=== PATIENT | female | born 2000 | race Caucasian/White ===

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

== ENCOUNTER → 2019-01-08 | Outpatient (CLI) | payer OTHER ==
--- NOTE | 2019-01-08 15:18 | US ---
EXAMINATION TYPE: US pelvic complete DATE OF EXAM: 01/08/2019 COMPARISON: US 2016 CLINICAL HISTORY: R10.2 pelvic pain. Pain during intercourse, 1, para 1 TECHNIQUE: . Transabdominal sonographic images of the pelvis were acquired. Date of LMP: 12/22/2018 EXAM MEASUREMENTS: Uterus: 7.4 x 3.8 x 4.6 cm Endometrial Stripe: 1.3 cm Right Ovary: 2.9 x 1.8 x 2.0 cm Left Ovary: 3.8 x 2.5 x 2.6 cm 1. Uterus: anteverted 2. Endometrium: wnl 3. Right Ovary: 1.7cm cystic area 4. Left Ovary: 2.1cm cystic area 5. Bilateral Adnexa: wnl 6. Posterior cul-de-sac: small amount of free fluid IMPRESSION: 1. Bilateral ovarian cysts. 2. Small amount of free fluid in the cul-de-sac
== END | disposition home or self-care (01) ==
LOC: RADUSWWP 14:47
PROVIDERS: ATTEND Obstetrics & Gynecology
DX: N83.202 Unspecified ovarian cyst, left side (principal); N83.201 Unspecified ovarian cyst, right side
CPT/HCPCS: 76856

== ENCOUNTER → 2019-04-22 | Outpatient (CLI) | payer OTHER ==
--- NOTE | 2019-04-22 15:38 | US ---
EXAMINATION TYPE: Transabdominal DATE OF EXAM: 04/22/2019 3:11 PM COMPARISON: NONE CLINICAL HISTORY: Z36 Confirm dates. Dates EXAM PERFORMED: Transabdominal (TA) EXAM MEASUREMENTS: GESTATIONAL AGE / DATING Dates by LMP: (13 weeks/0 days) EDC: 10/28/2019 Dates by Current Scan for: ( weeks/ days) EDC: MATERNAL ANATOMY Uterus: 11.8 x 8.3 x 6.2 cm Right Ovary: 2.7 x 1.5 x 1.6 cm Left Ovary: 2.6 x 1.6 x 1.3 cm Post CDS / Adnexa: no free fluid Presence of free fluid: no Presence of corpus luteal cyst: no Presence of subchorionic bleed: fundal hypoechoic lesion adjacent to GS = 3.4 x 4.8 x 1.6 cm GESTATION / SURVEY CRL: 5.9 cm (12 weeks/3 days) MSD: seen, not measured Yolk Sac (normal less than 6mm): not visualized Heart Rate: 159 bpm Rhythm: Normal IUP: Viable IUP Date of LMP: 01/21/2019, Beta HcG (if available): Not available at this time Single live intrauterine gestation is confirmed as gestational sac and pole are seen. Sac is no t clearly identified. No free fluid in pelvic cul-de-sac. There is small to moderate size isoechoic f luid collection superiorly could reflect subchorionic hemorrhage. Both ovaries are seen without susp icious extraovarian adnexal mass. IMPRESSION: Single live intrauterine gestation is confirmed, mean crown-rump length is 5.9 cm corresp onding to 12 week 3 day old fetus.
== END | disposition home or self-care (01) ==
LOC: RADUSWWP 14:48
PROVIDERS: ATTEND Obstetrics & Gynecology
DX: Z36.9 Encounter for antenatal screening, unspecified (principal)
CPT/HCPCS: 76801

== ENCOUNTER → 2019-04-30 | Outpatient (CLI) | payer OTHER ==
[2019-04-30 10:56] LABS: HCT 36.4 % (34.0-46.0); HGB 12.3 gm/dL (11.4-16.0); MCH 29.3 pg (25.0-35.0); MCHC 33.9 g/dL (31.0-37.0); MCV 86.4 fL (80.0-100.0); Mean Platelet Volume 6.3; Platelet Count 334 k/uL (150-450); RBC 4.22 m/uL (3.80-5.40); RDW 12.7 % (11.5-15.5); WBC 10.6 k/uL (4.0-11.0)
[2019-04-30 16:13] LABS: African American GFR (CKD) 153.1 (60.0-200.0)
[2019-04-30 17:45] LABS: HIV 1 AB Non-Reactive (Non-Reactive); HIV AB P24 Non-Reactive (Non-Reactive); HIV P24 AG Non-Reactive (Non-Reactive)
== END | disposition home or self-care (01) ==
LOC: LABWHC1 10:20
PROVIDERS: ATTEND Obstetrics & Gynecology
DX: Z34.81 Encounter for supervision of other normal pregnancy, first trimester (principal)
CPT/HCPCS: 36415; 82565; 82947; 85027; 86762; 86780; 86850; 86900; 86901; 87340; 87390

== ENCOUNTER 2019-07-23 13:02 | Outpatient (CLI) | payer OTHER ==
[2019-07-23 14:09] LABS: Amorphous Sediment,Urine Rare /hpf; Appearance,Urine Clear (Clear); Bilirubin,Urine Negative (Negative); Blood,Urine Negative (Negative); Color,Urine Yellow; Glucose,Urine (UA) Negative (Negative); Ketones,Urine Negative (Negative); Leukocyte Esterase,Urine Small (Negative); Mucus,Urine Occasional /hpf; Nitrite,Urine Negative (Negative); Protein,Urine Trace (Negative); Specific Gravity,Urine 1.022 (1.001-1.035); Squamous Epithelial Cell,Urine <1 /hpf (0-4); Urobilinogen,Urine <2.0 mg/dL (<2.0); WBC,Urine 4 /hpf (0-5)
[2019-07-23 14:53] VITALS: BP 120/70; PULSE 97; RESP 14; TEMP 98.3
--- NOTE | 2019-07-27 08:34 | P.MSEPDOC ---
Presenting Problems - Arrival Data Date of Arrival on Unit: 07/23/19 Time of Arrival on Unit: 13:09 Mode of Transport: Ambulatory - Complaint OB-Reason for Admission/Chief Complaint: Pain Comment: abd pain Medical History - Information : 2 Para: 1 Term: 1 : 0 Abortions: Spontaneous or Elective: 0 Number of Living Children: 1 - Gestational Age Gestational Age by DILAN (wks/days): 26 Weeks and 1 Days - History Complications: Smoker, Hx. Substance Abuse Comment: 09/16 ppd smoker. marijuana until 12 weeks Review of Systems - Review of Systems Constitutional: No problems Breast: No problems ENT: No problems Cardiovascular: No problems Respiratory: No problems Gastrointestinal: No problems Genitourinary: No problems Musculoskeletal: No problems Neurological: No problems Skin: No problems Vital Signs - Temperature Temperature: 98.3 F Temperature Source: Oral - Pulse Right Pulse Rate: 97 Pulse Assessment Method: Pulse Oximetry - Respirations Respiratory Rate: 14 O2 Sat by Pulse Oximetry: 99 - Blood Pressure Right Arm Blood Pressure: 120/70 Blood Pressure Mean: 86 Blood Pressure Source: Automatic Cuff Medical Screen Scoring (Pre) - Cervical Exam Dilation: 0 cm = 0 Membranes: Intact - Uterine Contractions Frequency: N/A Duration: N/A Intensity: N/A - Maternal Vital Signs Maternal Temperature: N/A Signs of Preeclampsia: N/A Maternal Respirations: N/A - Maternal Trauma Maternal Trauma: N/A - Assessment - Baby A Baseline FHR: 135 Heart Rate - NICHD Category: Category I (Normal) = 0 NST: Reactive - Total Score - Baby A Total Score - Baby A: 0 - Total Score - Baby B Total Score - Baby B: 0 - Total Score - Baby C Total Score - Baby C: 0 - Level of Risk - Baby A Level of Risk - Baby A: Low (0-5) - Level of Risk - Baby B Level of Risk - Baby B: Low (0-5) - Level of Risk - Baby C Level of Risk - Baby C: Low (0-5) Physician Notification (Pre) - Physician Notified Physician Notified Date: 07/23/19 Physician Notified Time: 13:30 - Notification Comment Comment: Reported on pts c/o constant lower abd pain and pressure, no. cntrx like pain, no pelvic pressure. denies bleeding or leaking, no intercourse in last. 24 hours. reported on term delivery with first baby. orders to collect and send UA,. collect ffn and check cervix. if closed, do not send ffn.Call with results. 1425- Dr Antunez called with UA results, SVE- closed thick, no bleeding or discharge. d/c home with instructions, use tylenol, support belt, other non pharm methods. keep scheduled appt on 08/03, may be off work today but none further. Disposition - Disposition OB Disposition: Discharge to home Discharge Date: 07/23/19 Discharge Time: 14:30 I agree with the RN Medical Screening Exam: Yes Risk & Benefit of care provided described in d/c instruction: Yes Diagnosis: UNSPECIFIED ABDOMINAL PAIN
== END 2019-07-23 14:30 | disposition home or self-care (01) ==
LOC: FBPOP 13:02
PROVIDERS: ATTEND Obstetrics & Gynecology
DX: O99.89 Other specified diseases and conditions complicating pregnancy, childbirth and the puerperium (principal); R10.9 Unspecified abdominal pain; Z3A.26 26 weeks gestation of pregnancy
CPT/HCPCS: 81001; G0463; 99213

== ENCOUNTER → 2019-07-28 | Outpatient (CLI) | payer OTHER ==
[2019-07-28 11:10] LABS: HCT 33.3 % (34.0-46.0); HGB 11.1 gm/dL (11.4-16.0); MCH 29.7 pg (25.0-35.0); MCHC 33.4 g/dL (31.0-37.0); Mean Platelet Volume 6.5; Platelet Count 301 k/uL (150-450); RBC 3.74 m/uL (3.80-5.40); RDW 12.4 % (11.5-15.5)
== END | disposition home or self-care (01) ==
LOC: LABWHC1 09:17
PROVIDERS: ATTEND Obstetrics & Gynecology
DX: Z34.82 Encounter for supervision of other normal pregnancy, second trimester (principal)
CPT/HCPCS: 36415; 82950; 85027

== ENCOUNTER → 2021-06-04 | Outpatient (CLI) | payer OTHER | END | disposition home or self-care (01) | LOC: LABWHC1 08:24 | PROVIDERS: ATTEND Obstetrics & Gynecology | DX: N92.6 Irregular menstruation, unspecified (principal) | CPT/HCPCS: 36415; 84702 ==

== ENCOUNTER → 2021-06-06 | Outpatient (CLI) | payer OTHER | END | disposition home or self-care (01) | LOC: LABWHC1 07:49 | PROVIDERS: ATTEND Obstetrics & Gynecology | DX: N92.6 Irregular menstruation, unspecified (principal) | CPT/HCPCS: 36415; 84702 ==

== ENCOUNTER → 2021-06-08 | Outpatient (CLI) | payer OTHER | END | disposition home or self-care (01) | LOC: LABWHC1 07:47 | PROVIDERS: ATTEND Obstetrics & Gynecology | DX: O20.0 Threatened abortion (principal); Z3A.00 Weeks of gestation of pregnancy not specified | CPT/HCPCS: 36415; 84702 ==

== ENCOUNTER → 2021-06-15 | Outpatient (CLI) | payer OTHER | END | disposition home or self-care (01) | LOC: LABWHC1 08:31 | PROVIDERS: ATTEND Obstetrics & Gynecology | DX: O20.0 Threatened abortion (principal); Z3A.00 Weeks of gestation of pregnancy not specified | CPT/HCPCS: 36415; 84702 ==

== ENCOUNTER → 2021-06-18 | Outpatient (CLI) | payer OTHER | END | disposition home or self-care (01) | LOC: LABWHC1 09:22 | PROVIDERS: ATTEND Obstetrics & Gynecology | DX: N92.6 Irregular menstruation, unspecified (principal) | CPT/HCPCS: 36415; 84702 ==

== ENCOUNTER → 2021-06-20 | Outpatient (CLI) | payer OTHER ==
[2021-06-20 11:16] LABS: HCT 39.9 % (37.2-46.3); HGB 13.1 g/dL (12.0-15.0); MCH 28.2 pg (27.0-32.0); MCHC 32.8 g/dL (32.0-37.0); MCV 85.8 fL (80.0-97.0); Mean Platelet Volume 9.8 fL (9.5-12.2); Platelet Count 420 X 10*3/uL (140-440); RBC 4.65 X 10*6/uL (4.10-5.20); RDW 12.2 % (11.5-14.5); WBC 10.16 X 10*3/uL (4.50-10.00)
[2021-06-20 18:54] LABS: ALT 16 U/L (8-44); AST 18 U/L (13-35); Albumin 4.1 g/dL (3.8-4.9); Albumin/Globulin Ratio 1.84 (1.60-3.17); Alkaline Phosphatase 71 U/L (41-126); Bilirubin, Conjugated <0.20 mg/dL (0.20-0.40); Globulin 2.2 g/dL (1.6-3.3); Total Protein 6.3 g/dL (6.2-8.2)
== END | disposition home or self-care (01) ==
LOC: LABWHC1 07:50
PROVIDERS: ATTEND Obstetrics & Gynecology
DX: O00.90 Unspecified ectopic pregnancy without intrauterine pregnancy (principal); Z3A.00 Weeks of gestation of pregnancy not specified
CPT/HCPCS: 36415; 80076; 84702; 85027

== ENCOUNTER 2021-06-21 04:27 | Day surgery (SDC) | payer OTHER ==
[2021-06-21] MEDS ORDERED: SODIUM CHLORIDE 0.9% 1,000 ML IV ONE ×3 (05:12→10:23)
[2021-06-21] MEDS ORDERED: MORPHINE SULFATE 4 MG/ML SYRINGE IV STA (05:12)
--- NOTE | 2021-06-21 05:25 | ED ---
Female Urogenital HPI <Ollie Buckner - Last Filed: 06/21/21 08:58> - General Source: patient, RN notes reviewed, old records reviewed Mode of arrival: ambulatory Limitations: no limitations - History of Present Illness MD Complaint: vaginal bleeding (Earlier in the week), pelvic pain (Starting last night) -: hour(s) Location: suprapubic Radiation: suprapubic, L flank Severity: moderate Severity scale (1-10): 7 Quality: sharp Consistency: constant Improves with: none Worsens with: none Patient : Yes Associated Symptoms: vaginal bleeding, abdominal pain, nausea/vomiting - Related Data Sexually active: No <Johnny Alberts - Last Filed: 06/21/21 21:38> - General Chief complaint: Abdominal Pain Stated complaint: Abdominal Pain Time Seen by Provider: 06/21/21 04:41 - History of Present Illness Initial comments: This is a 21-year-old female to the ER for evaluation. Patient resents today for evaluation onset of abdominal pain with known history of ectopic . Patient herself is unconvinced that she has ectopic bolus told by OB and has recurrent evaluation both today and tomorrow for evaluation of ectopic or possibility of ectopic. Patient started with abdominal pain last night into today worsening but no bleeding no feelings of syncope or near syncope, patient is a who does follow with Dr. Sanchez (Johnny Alberts) - Related Data Previous Rx's Medication Instructions Recorded Acetaminophen-Codeine 300-30mg 2 tab PO Q6H PRN #20 tablet 06/21/21 [Tylenol #3] Ibuprofen [Motrin] 600 mg PO Q6HR PRN #30 tab 06/21/21 Allergies Allergy/AdvReac Type Severity Reaction Status Date / Time blueberry Allergy Rash/Hives Verified 06/21/21 08:36 cephalexin [From Keflex] Allergy Rash/Hives Verified 06/21/21 08:36 Fish Containing Products Allergy Anaphylaxis Verified 06/21/21 08:36 [Fish] iodine Allergy Rash/Hives Verified 06/21/21 08:36 kiwi Allergy Rash/Hives Verified 06/21/21 08:36 peas Allergy Rash/Hives Verified 06/21/21 08:36 Penicillins Allergy Rash/Hives Verified 06/21/21 08:36 raspberry Allergy Rash/Hives Verified 06/21/21 08:36 shellfish derived [Shellfish] Allergy Anaphylaxis Verified 06/21/21 08:36 venom-honey bee Allergy Anaphylaxis Verified 06/21/21 08:36 [bee venom (honey bee)] amoxicillin [Amoxicillin] AdvReac Rash/Hives Verified 06/21/21 08:36 erythromycin base AdvReac Rash/Hives Verified 06/21/21 08:36 [Erythromycin Base] lavender (Lavandula AdvReac Rash/Hives Verified 06/21/21 08:36 angustifolia) Review of Systems ROS Other: All systems not noted in ROS Statement are negative. <Ollie Buckner - Last Filed: 06/21/21 08:58> ROS Other: All systems not noted in ROS Statement are negative. <Johnny Alberts - Last Filed: 06/21/21 21:38> ROS Statement: Those systems with pertinent positive or pertinent negative responses have been documented in the HPI. Past Medical History Past Medical History: Asthma Additional Past Medical History / Comment(s): Ob history: First was an SAB. Second was a vaginal delivery. This is her third and she had care with ms since 9 weeks. O+, abs neg, Rub nonimmune, RPR nonreactive, HIV NR, toxo neg. GBS negative. History of Any Multi-Drug Resistant Organisms: None Reported Past Surgical History: No Surgical Hx Reported Past Anesthesia/Blood Transfusion Reactions: No Reported Reaction Past Psychological History: Depression Smoking Status: Vaper Past Alcohol Use History: None Reported Past Drug Use History: None Reported - Past Family History Mother Family Medical History: Cancer, Congestive Heart Failure (CHF), Diabetes Mellitus, Rheumatoid Arthritis (RA) Additional Family Medical History / Comment(s): breast cancer. <Johnny Alberts - Last Filed: 06/21/21 21:38> General Exam Limitations: no limitations General appearance: alert, in no apparent distress, anxious Head exam: Present: atraumatic, normocephalic, normal inspection Eye exam: Present: normal appearance, PERRL, EOMI. Absent: scleral icterus, conjunctival injection, periorbital swelling ENT exam: Present: normal exam, mucous membranes moist Neck exam: Present: normal inspection. Absent: tenderness, meningismus, lymphadenopathy Respiratory exam: Present: normal lung sounds bilaterally. Absent: respiratory distress, wheezes, rales, rhonchi, stridor Cardiovascular Exam: Present: regular rate, normal rhythm, normal heart sounds. Absent: systolic murmur, diastolic murmur, rubs, gallop, clicks GI/Abdominal exam: Present: soft, normal bowel sounds. Absent: distended, tenderness, guarding, rebound, rigid Extremities exam: Present: normal inspection, full ROM, normal capillary refill. Absent: tenderness, pedal edema, joint swelling, calf tenderness Back exam: Present: normal inspection Neurological exam: Present: alert, oriented X3, CN II-XII intact Psychiatric exam: Present: normal affect, normal mood Skin exam: Present: warm, dry, intact, normal color. Absent: rash <Johnny Alberts - Last Filed: 06/21/21 21:38> Course <Ollie Buckner - Last Filed: 06/21/21 08:58> <Johnny Alberts - Last Filed: 06/21/21 21:38> Vital Signs 06/21/21 06/21/21 06/21/21 04:38 06:31 07:28 Temperature 98.3 F Pulse Rate 77 75 86 Pulse Rate [ Pulse Oximetery ] Respiratory 22 18 18 Rate Blood Pressure 133/93 114/74 107/62 Blood Pressure [Right Arm] O2 Sat by Pulse 97 97 100 Oximetry 06/21/21 06/21/21 06/21/21 08:19 08:20 08:39 Temperature 98.3 F 98.4 F Pulse Rate 82 82 Pulse Rate [ 91 Pulse Oximetery ] Respiratory 18 18 16 Rate Blood Pressure 107/64 107/64 Blood Pressure 107/59 [Right Arm] O2 Sat by Pulse 100 100 99 Oximetry - Reevaluation(s) Reevaluation #1: 06/21/21 07:54 The patient was endorsed me by Dr. Alberts at her shift change pending evaluation by K[employer] MACH[employer] Dr. Saunders they come see the patient in the emergency department pending evaluation by Dr. Sanchez. 06/21/21 07:59 Pelvic ultrasound showed evidence of a mass 2 cm in the left adnexa possibility of ectopic . (Ollie Buckner) 06/21/21 06:35 Medical record is reviewed Patient does have pain control currently No current worsening of vital signs Did speak with OB who will be seeing patient in the emergency department (Johnny Alberts) Medical Decision Making - Lab Data Result diagrams: 06/21/21 05:59 06/21/21 05:59 <Ollie Buckner - Last Filed: 06/21/21 08:58> - Lab Data Result diagrams: 06/21/21 05:59 06/21/21 05:59 - Radiology Data Radiology results: report reviewed (Ultrasound shows recurrent suspicion for ectopic , no IUP), image reviewed <Johnny Alberts - Last Filed: 06/21/21 21:38> - Medical Decision Making The patient was taken to the operating room for evaluation treatment of the suspected ectopic . (Ollie Buckner) - Lab Data Lab Results 06/21/21 06/21/21 06/21/21 Range/Units 05:59 05:59 05:59 WBC 9.3 (3.8-10.6) k/uL RBC 4.47 (3.80-5.40) m/uL Hgb 13.2 (11.4-16.0) gm/dL Hct 39.2 (34.0-46.0) % MCV 87.8 (80.0-100.0) fL MCH 29.5 (25.0-35.0) pg MCHC 33.6 (31.0-37.0) g/dL RDW 11.9 (11.5-15.5) % Plt Count 363 (150-450) k/uL MPV 6.9 Neutrophils % 58 % Lymphocytes % 28 % Monocytes % 7 % Eosinophils % 5 % Basophils % 1 % Neutrophils # 5.4 (1.3-7.7) k/uL Lymphocytes # 2.6 (1.0-4.8) k/uL Monocytes # 0.6 (0-1.0) k/uL Eosinophils # 0.5 (0-0.7) k/uL Basophils # 0.1 (0-0.2) k/uL PT 10.5 (9.0-12.0) sec INR 1.0 (<1.2) APTT 23.6 (22.0-30.0) sec Sodium (137-145) mmol/L Potassium (3.5-5.1) mmol/L Chloride (98-107) mmol/L Carbon Dioxide (22-30) mmol/L Anion Gap mmol/L BUN (7-17) mg/dL Creatinine (0.52-1.04) mg/dL Est GFR (CKD-EPI)AfAm (>60 ml/min/1.73 sqM) Est GFR (CKD-EPI)NonAf (>60 ml/min/1.73 sqM) Glucose (74-99) mg/dL Calcium (8.4-10.2) mg/dL Total Bilirubin (0.2-1.3) mg/dL AST (14-36) U/L ALT (4-34) U/L Alkaline Phosphatase (38-126) U/L Total Protein (6.3-8.2) g/dL Albumin (3.5-5.0) g/dL HCG, Quant mIU/mL Urine Color Yellow Urine Appearance Clear (Clear) Urine pH 6.0 (5.0-8.0) Ur Specific [place] 1.025 (1.001-1.035) Urine Protein Negative (Negative) Urine Glucose (UA) Negative (Negative) Urine Ketones Negative (Negative) Urine Blood Negative (Negative) Urine Nitrite Negative (Negative) Urine Bilirubin Negative (Negative) Urine Urobilinogen <2.0 (<2.0) mg/dL Ur Leukocyte Esterase Negative (Negative) Blood Type Blood Type Recheck Bld Type Recheck Status Antibody Screen Spec Expiration Date 06/21/21 06/21/21 Range/Units 05:59 06:00 WBC (3.8-10.6) k/uL RBC (3.80-5.40) m/uL Hgb (11.4-16.0) gm/dL Hct (34.0-46.0) % MCV (80.0-100.0) fL MCH (25.0-35.0) pg MCHC (31.0-37.0) g/dL RDW (11.5-15.5) % Plt Count (150-450) k/uL MPV Neutrophils % % Lymphocytes % % Monocytes % % Eosinophils % % Basophils % % Neutrophils # (1.3-7.7) k/uL Lymphocytes # (1.0-4.8) k/uL Monocytes # (0-1.0) k/uL Eosinophils # (0-0.7) k/uL Basophils # (0-0.2) k/uL PT (9.0-12.0) sec INR (<1.2) APTT (22.0-30.0) sec Sodium 135 L (137-145) mmol/L Potassium 4.4 (3.5-5.1) mmol/L Chloride 104 (98-107) mmol/L Carbon Dioxide 24 (22-30) mmol/L Anion Gap 7 mmol/L BUN 10 (7-17) mg/dL Creatinine 0.59 (0.52-1.04) mg/dL Est GFR (CKD-EPI)AfAm >90 (>60 ml/min/1.73 sqM) Est GFR (CKD-EPI)NonAf >90 (>60 ml/min/1.73 sqM) Glucose 95 (74-99) mg/dL Calcium 9.5 (8.4-10.2) mg/dL Total Bilirubin 0.5 (0.2-1.3) mg/dL AST 20 (14-36) U/L ALT 15 (4-34) U/L Alkaline Phosphatase 63 (38-126) U/L Total Protein 6.4 (6.3-8.2) g/dL Albumin 3.8 (3.5-5.0) g/dL HCG, Quant 5734.4 mIU/mL Urine Color Urine Appearance (Clear) Urine pH (5.0-8.0) Ur Specific [place] (1.001-1.035) Urine Protein (Negative) Urine Glucose (UA) (Negative) Urine Ketones (Negative) Urine Blood (Negative) Urine Nitrite (Negative) Urine Bilirubin (Negative) Urine Urobilinogen (<2.0) mg/dL Ur Leukocyte Esterase (Negative) Blood Type O Positive Blood Type Recheck O Pos Bld Type Recheck Status No Antibody Screen NEGATIVE Spec Expiration Date 06/24/20212299 Critical Care Time Critical Care Time: Yes Total Critical Care Time: 31 <Johnny Alberts - Last Filed: 06/21/21 21:38> Disposition <Ollie Buckner - Last Filed: 06/21/21 08:58> Is patient prescribed a controlled substance at d/c from ED?: No <Johnny Alberts - Last Filed: 06/21/21 21:38> Clinical Impression: Ectopic , Intractable pain Disposition: HOME SELF-CARE Condition: Serious
[2021-06-21 06:27] LABS: Basophils # (A) 0.1 k/uL (0-0.2); Basophils % (A) 1 %; Eosinophils # (A) 0.5 k/uL (0-0.7); Eosinophils % (A) 5 %; HCT 39.2 % (34.0-46.0); HGB 13.2 gm/dL (11.4-16.0); Lymphocytes # (A) 2.6 k/uL (1.0-4.8); Lymphocytes % (A) 28 %; MCH 29.5 pg (25.0-35.0); MCHC 33.6 g/dL (31.0-37.0); MCV 87.8 fL (80.0-100.0); Mean Platelet Volume 6.9; Monocytes # (A) 0.6 k/uL (0-1.0); Monocytes % (A) 7 %; Neutrophils # (A) 5.4 k/uL (1.3-7.7); Neutrophils % (A) 58 %; Platelet Count 363 k/uL (150-450); RBC 4.47 m/uL (3.80-5.40); RDW 11.9 % (11.5-15.5); WBC 9.3 k/uL (3.8-10.6)
--- NOTE | 2021-06-21 06:36 | US ---
EXAMINATION TYPE: Transabdominal DATE OF EXAM: 06/21/2021 6:21 AM COMPARISON: NONE CLINICAL HISTORY: pain/ectopic. Patient states she was diagnosed with a left sided ectopic last week EXAM PERFORMED: Transvaginal (TV) and Transabdominal (TA) EXAM MEASUREMENTS: GESTATIONAL AGE / DATING Physician Established: Not yet established Dates by LMP: ( 7 weeks/3 days) EDC: 02/04/2022 Dates by Current Scan for: No IUP seen at this time MATERNAL ANATOMY Uterus: 8.0 x 4.3 x 4.3 cm Right Ovary: 1.5 x 0.8 x 0.9 cm Post CDS / Adnexa: Moderate amount of complex free fluid visualized. Witnin the left adnexa, adjacent to the left ovary, there is a complex area measuring 2.1 x 1.9 x 2.3 cm suspicious for ectopic pregn natty. Presence of free fluid: Yes GESTATION / SURVEY IUP: No IUP seen at this time Date of LMP: 04/30/2021 Beta HcG (if available): 4833.1 on 06/20/2021 No IUP visualized. Witnin the left adnexa, adjacent to the left ovary, there is a complex area measur ing 2.1 x 1.9 x 2.3 cm suspicious for ectopic . Moderate amount of complex free fluid visual ized in cul de sac. IMPRESSION: No intrauterine gestational sac seen. Thick walled mass measuring 2 cm in the left adnexa could be ea rly ectopic . This has central fluid collection 7 mm. No yolk sac or pole seen. No rec ent exam to compare.
[2021-06-21 06:42] LABS: ALT 15 U/L (4-34); AST 20 U/L (14-36); African American GFR (CKD) >90 (>60 ml/min/1.73 sqM); Albumin 3.8 g/dL (3.5-5.0); Alkaline Phosphatase 63 U/L (38-126); Anion Gap 7 mmol/L; Blood Urea Nitrogen 10 mg/dL (7-17); Calcium 9.5 mg/dL (8.4-10.2); Carbon Dioxide 24 mmol/L (22-30); Chloride 104 mmol/L (98-107); Glucose 95 mg/dL (74-99); Non-African American GFR(CKD) >90 (>60 ml/min/1.73 sqM); Potassium 4.4 mmol/L (3.5-5.1); Sodium 135 mmol/L (137-145); Total Bilirubin 0.5 mg/dL (0.2-1.3); Total Protein 6.4 g/dL (6.3-8.2)
[2021-06-21 06:57] LABS: HCG,Quantitative Serum 5734.4 mIU/mL
[2021-06-21 07:05] LABS: Partial Thromboplastin Time 23.6 sec (22.0-30.0); Prothrombin Time 10.5 sec (9.0-12.0)
[2021-06-21 07:12] LABS: Appearance,Urine Clear (Clear); Bilirubin,Urine Negative (Negative); Blood,Urine Negative (Negative); Color,Urine Yellow; Glucose,Urine (UA) Negative (Negative); Ketones,Urine Negative (Negative); Leukocyte Esterase,Urine Negative (Negative); Nitrite,Urine Negative (Negative); Protein,Urine Negative (Negative); Specific Gravity,Urine 1.025 (1.001-1.035); Urobilinogen,Urine <2.0 mg/dL (<2.0)
--- NOTE | 2021-06-21 08:22 | P.HPOB ---
History of Present Illness H&P Date: 06/21/21 Chief Complaint: left ectopic 29-year-old presents with a diagnosed left ectopic . I spoke to her yesterday her about getting methotrexate and she was not ready for this so I scheduled another ultrasound for later today. She was told to come to the emergency room of her pain increased. This morning her pain did increase and mostly on the left side but also within the mid pelvis. Her hemoglobin is stable. There is her decision making the decision was made to take her to the operating room and perform a left salpingectomy with removal of ectopic Review of Systems All systems: negative Constitutional: Denies chills, Denies fever Eyes: denies blurred vision, denies pain Ears, nose, mouth and throat: Denies headache, Denies sore throat Cardiovascular: Denies chest pain, Denies shortness of breath Respiratory: Denies cough Gastrointestinal: Denies abdominal pain, Denies diarrhea, Denies nausea, Denies vomiting Genitourinary: Denies dysuria, Denies hematuria Musculoskeletal: Denies myalgias Integumentary: Denies pruritus, Denies rash Neurological: Denies numbness, Denies weakness Psychiatric: Denies anxiety, Denies depression Endocrine: Denies fatigue, Denies weight change Past Medical History Past Medical History: Asthma History of Any Multi-Drug Resistant Organisms: None Reported Past Surgical History: No Surgical Hx Reported Past Anesthesia/Blood Transfusion Reactions: No Reported Reaction Past Psychological History: Depression Smoking Status: Vaper Past Alcohol Use History: None Reported Past Drug Use History: None Reported - Past Family History Mother Family Medical History: Cancer, Congestive Heart Failure (CHF), Diabetes Mellitus, Rheumatoid Arthritis (RA) Additional Family Medical History / Comment(s): breast cancer. Medications and Allergies Home Medications Medication Instructions Recorded Confirmed Type Multivitamin [Children's 2 tab PO DAILY 17 10/21/19 History Multivitamins] Ibuprofen [Motrin] 600 mg PO Q6HR PRN #30 tab 10/22/19 Rx Allergies Allergy/AdvReac Type Severity Reaction Status Date / Time blueberry Allergy Rash/Hives Verified 06/21/21 04:42 cephalexin [From Keflex] Allergy Rash/Hives Verified 06/21/21 04:42 Fish Containing Products Allergy Anaphylaxis Verified 06/21/21 04:42 [Fish] iodine Allergy Rash/Hives Verified 06/21/21 04:42 kiwi Allergy Rash/Hives Verified 06/21/21 04:42 peas Allergy Rash/Hives Verified 06/21/21 04:42 Penicillins Allergy Rash/Hives Verified 06/21/21 04:42 raspberry Allergy Rash/Hives Verified 06/21/21 04:42 shellfish derived [Shellfish] Allergy Anaphylaxis Verified 06/21/21 04:42 venom-honey bee Allergy Anaphylaxis Verified 06/21/21 04:42 [bee venom (honey bee)] amoxicillin [Amoxicillin] AdvReac Rash/Hives Verified 06/21/21 04:42 erythromycin base AdvReac Rash/Hives Verified 06/21/21 04:42 [Erythromycin Base] lavender (Lavandula AdvReac Rash/Hives Verified 06/21/21 04:42 angustifolia) Exam Osteopathic Statement: *. No significant issues noted on an osteopathic structural exam other than those noted in the History and Physical/Consult. Vital Signs Temp Pulse Resp BP Pulse Ox 06/21/21 07:28 86 18 107/62 100 06/21/21 06:31 75 18 114/74 97 06/21/21 04:38 98.3 F 77 22 133/93 97 Intake and Output 06/20/21 06/21/21 06/21/21 22:59 06:59 14:59 Other: Weight 81.193 kg Heart: Regular rate and rhythm Lungs: Clear to auscultation bilaterally Abdomen: Soft, tender to palpation in the low pelvis Extremities: Negative Homans sign Results Result Diagrams: 06/21/21 05:59 06/21/21 05:59 Abnormal Lab Results - Last 24 Hours (Table) 06/21/21 Range/Units 05:59 Sodium 135 L (137-145) mmol/L Assessment and Plan (1) Ectopic Current Visit: Yes Status: Acute Code(s): O00.90 - UNSPECIFIED ECTOPIC WITHOUT INTRAUTERINE SNOMED Code(s): 36689333 (2) Intractable pain Current Visit: Yes Status: Acute Code(s): R52 - PAIN, UNSPECIFIED SNOMED Code(s): 24115984 Plan: 1. Laparoscopic left salpingectomy with removal of ectopic using da Pippa
[2021-06-21] MEDS ORDERED: ONDANSETRON 4 MG/2 ML VIAL ONE ×2 (08:37→13:22)
[2021-06-21] MEDS ORDERED: MIDAZOLAM 2 MG/2 ML VIAL IVP ONE (08:47)
[2021-06-21] MEDS ORDERED: ONDANSETRON 4 MG/2 ML VIAL IVP ONE ×3 (08:47→13:25)
[2021-06-21] MEDS ORDERED: DEXAMETHASONE SOD PHOSPHATE 4 MG/ML 1 ML VIAL IVP ONE (08:47)
[2021-06-21] MEDS ORDERED: IV FLUID CONTINUATION 1,000 ML IV ONE (08:47)
[2021-06-21] MEDS ORDERED: MIDAZOLAM 2 MG/2 ML VIAL ONE (08:48)
[2021-06-21] MEDS ORDERED: PHENYLEPHRINE-0.9% NACL SYG 1,000 MCG/10 ML SYRINGE ONE (08:48)
[2021-06-21] MEDS ORDERED: KETOROLAC 15 MG/ML 1 ML VIAL ONE (08:48)
[2021-06-21] MEDS ORDERED: SUCCINYLCHOLINE CHLORIDE 100 MG/5 ML SYR IV ONE (08:48)
[2021-06-21] MEDS ORDERED: fentaNYL (PF) 50 MCG/ML 2 ML AMP ONE (08:48)
[2021-06-21] MEDS ORDERED: ROCURONIUM 10 MG/ML (5 ML VIAL) IV ONE (08:48)
[2021-06-21] MEDS ORDERED: LIDOCAINE 1% INJ 10MG/ML (20 ML MDV) ONE (08:48)
[2021-06-21] MEDS ORDERED: HYDROmorphone (PF) 1 MG/ML ONE (08:48)
[2021-06-21] MEDS ORDERED: GLYCOPYRROLATE 0.2 MG/ML 2 ML VIAL ONE (08:48)
[2021-06-21] MEDS ORDERED: PROPOFOL 10 MG/ML 20 ML VIAL IV ONE (08:48)
[2021-06-21] MEDS ORDERED: NEOSTIGMINE 1 MG/ML 10 ML VIAL ONE (08:48)
[2021-06-21] MEDS ORDERED: BUPIVACAINE (PF) 0.25% 30 ML VIAL SQ ONE (09:25)
[2021-06-21] MEDS ORDERED: METHYLENE BLUE 10 MG/ML (10 ML VIAL) MISCELLANE ONE (09:49)
--- NOTE | 2021-06-21 09:56 | P.OP ---
Date of Procedure: 06/21/21 Preoperative Diagnosis: 1. ectopic Postoperative Diagnosis: 1. ruptured left ovarian ectopic Procedure(s) Performed: Robotic laparoscopy with removal of ectopic from the ovary, placement of's no and chromotubation Anesthesia: CONNER Surgeon: Trang Sancehz Estimated Blood Loss (ml): 15 IV fluids (ml): 500 Urine output (ml): 55 Pathology: other (ectopic and part of left ovary) Condition: stable Disposition: PACU Operative Findings: Blood noted in the cul-de-sac and lower pelvis, blood clot surrounding ectopic attached to left ovary. Methylene blue was seen spilling out of both fallopian tubes at fimbriated end during chromotubation. Description of Procedure: Patient taken the operating room where general anesthesia was obtained without difficulty. She is prepped and draped in normal sterile fashion dorsal lithotomy position, legs placed in the Guillermo stirrups. Weighted speculum placed in the vagina and the anterior lip the cervix was grasped with single-tooth tenaculum. The uterus sounded to 8 cm and the kroner manipulator was placed. The bladder was drained of all urine. Attention was then turned to the abdomen and gloves were changed. A 5 mm supraumbilical incision was made the scalpel and a 5 mm optical trocar was placed under direct visualization. 10 cm to the right of this and 2 cm down a 5 mm incision was made and 8 mm da Pippa port was placed under direct visualization. Same measurements on the opposite side of the patient's abdomen, the 5 mm incision was made and 8 mm da Pippa port was placed under direct visualization. In the left upper quadrant a 10 mm incision was made and a 10 mm optical trocar was placed under direct visualization. The 5 mm optical trocar was then replaced with the 8 mm da Pippa camera port. The robot was docked on patient's right side. The camera was introduced and then the monopolar curved scissor and [place] bipolar placed under direct visualization. I broke scrub and went to the physician console. Survey of the pelvis revealed blood near the uterus and in the posterior cul-de-sac. The right fallopian tube and ovary appeared normal. The left fallopian tube appeared normal. The left ovary had a blood clot attached to it and when the blood clot was removed the ectopic was revealed. I used the [place] bipolar to cauterize across the ectopic between the ovary and the ectopic and cut this away using the monopolar curved scissors. There was some bleeding noted and attempts were made to stop the bleeding using the cautery. There was still some oozing so surgical so was placed to obtain hemostasis. In order to ensure did not miss anything in the left fallopian tube chromotubation was performed with methylene blue. I did see spillage of the methylene blue out of both fimbriated ends of the fallopian tubes. All instruments removed from the vagina and the abdomen. The abdominal incisions were closed with 4-0 Vicryl in a subcuticular fashion. Patient tolerated the procedure well, sponge and instrument counts correct 2 and she was taken to recovery room in stable condition condition
[2021-06-21 10:13] VITALS: TEMP 97.3
[2021-06-21] MEDS: HYDROmorphone 0.5 MG/0.5 ML SYRINGE IVP ONE ×2 (10:52→11:01)
[2021-06-21 12:05] VITALS: RESP 20
[2021-06-21] MEDS ORDERED: IBUPROFEN 200 MG TAB PO ONE (12:25)
[2021-06-21 12:43] VITALS: BP 107/76; PULSE 77
== END 2021-06-21 14:07 | disposition home or self-care (01) ==
LOC: EC 04:27 → OR 04:27 → EC 08:25 → EDSTATUS 11:26 → OR 14:07
PROVIDERS: ATTEND Emergency Medicine
DX: O00.90 Unspecified ectopic pregnancy without intrauterine pregnancy (principal); Z3A.00 Weeks of gestation of pregnancy not specified; J45.909 Unspecified asthma, uncomplicated; F32.9 Major depressive disorder, single episode, unspecified; F17.290 Nicotine dependence, other tobacco product, uncomplicated; Z83.3 Family history of diabetes mellitus; Z82.61 Family history of arthritis; Z82.49 Family history of ischemic heart disease and other diseases of the circulatory system; Z80.3 Family history of malignant neoplasm of breast; Z88.1 Allergy status to other antibiotic agents; Z88.0 Allergy status to penicillin; Z91.013 Allergy to seafood; Z91.018 Allergy to other foods; Z91.048 Other nonmedicinal substance allergy status
CPT/HCPCS: 59150; 96361; 96374; 99291; 36415; 86900; 86901; 88305; 80053; 85025; 85610; 85730; 86850; 81003; 84702; 76801; 76817; J2250; J2270; J1100; J2710; J2405; J2001; Q9968; J3010; J1170 ×2; J1885; J2370; J0330; J2704

== ENCOUNTER 2021-06-22 04:40 | Emergency (ER) | payer OTHER ==
[2021-06-22] MEDS ORDERED: SODIUM CHLORIDE 0.9% 1,000 ML IV STA (04:55)
[2021-06-22] MEDS ORDERED: MORPHINE SULFATE 4 MG/ML SYRINGE IVP STA (04:55)
[2021-06-22] MEDS ORDERED: LORazepam 2 MG/ML INJ IV STA (04:55)
[2021-06-22] MEDS ORDERED: ONDANSETRON 4 MG/2 ML VIAL IVP STA (04:55)
--- NOTE | 2021-06-22 04:57 | ED ---
Recheck HPI - General Chief Complaint: Chest Pain Stated Complaint: Post-op JEN Time Seen by Provider: 06/22/21 04:55 Source: patient, RN notes reviewed, old records reviewed Mode of arrival: ambulatory Limitations: no limitations - History of Present Illness Initial Comments: This is a 21-year-old female to the emergency room today. Patient Dese for e valuation regards to severe abdominal pain epigastric abdominal pain nausea vomiting and chest pain. Patient had recent surgery for ectopic yesterday and symptoms are improved she will home softball and pain began last night into this morning. Patient is without fever. She is passing gas without difficulty and has no other complaints MD Complaint: other (Pain control) -: hour(s) Returns Today for: persistent/worsening pain related to initial visit Symptoms Since Prior Visit: no new symptoms, worsening pain Associated Symptoms: chest pain, nausea, abdominal pain Treatments Prior to Arrival: Given Pain Meds on - Related Data Previous Rx's Medication Instructions Recorded Acetaminophen-Codeine 300-30mg 2 tab PO Q6H PRN #20 tablet 06/21/21 [Tylenol #3] Ibuprofen [Motrin] 600 mg PO Q6HR PRN #30 tab 06/21/21 Allergies Allergy/AdvReac Type Severity Reaction Status Date / Time blueberry Allergy Rash/Hives Verified 06/22/21 04:47 cephalexin [From Keflex] Allergy Rash/Hives Verified 06/22/21 04:47 Fish Containing Products Allergy Anaphylaxis Verified 06/22/21 04:47 [Fish] iodine Allergy Rash/Hives Verified 06/22/21 04:47 kiwi Allergy Rash/Hives Verified 06/22/21 04:47 peas Allergy Rash/Hives Verified 06/22/21 04:47 Penicillins Allergy Rash/Hives Verified 06/22/21 04:47 raspberry Allergy Rash/Hives Verified 06/22/21 04:47 shellfish derived [Shellfish] Allergy Anaphylaxis Verified 06/22/21 04:47 venom-honey bee Allergy Anaphylaxis Verified 06/22/21 04:47 [bee venom (honey bee)] amoxicillin [Amoxicillin] AdvReac Rash/Hives Verified 06/22/21 04:47 erythromycin base AdvReac Rash/Hives Verified 06/22/21 04:47 [Erythromycin Base] lavender (Lavandula AdvReac Rash/Hives Verified 06/22/21 04:47 angustifolia) Review of Systems ROS Statement: Those systems with pertinent positive or pertinent negative responses have been documented in the HPI. ROS Other: All systems not noted in ROS Statement are negative. Past Medical History Past Medical History: Asthma Additional Past Medical History / Comment(s): Ob history: First was an SAB. Second was a vaginal delivery. This is her third and she had care with me since 9 weeks. O+, abs neg, Rub nonimmune, RPR nonreactive, HIV NR, toxo neg. GBS negative. History of Any Multi-Drug Resistant Organisms: None Reported Past Surgical History: No Surgical Hx Reported Past Anesthesia/Blood Transfusion Reactions: No Reported Reaction Past Psychological History: Depression Smoking Status: Vaper Past Alcohol Use History: None Reported Past Drug Use History: None Reported - Past Family History Mother Family Medical History: Cancer, Congestive Heart Failure (CHF), Diabetes Mellitus, Rheumatoid Arthritis (RA) Additional Family Medical History / Comment(s): breast cancer. General Exam Limitations: no limitations General appearance: alert, in no apparent distress Head exam: Present: atraumatic, normocephalic, normal inspection Eye exam: Present: normal appearance, PERRL, EOMI. Absent: scleral icterus, conjunctival injection, periorbital swelling ENT exam: Present: normal exam, mucous membranes moist Neck exam: Present: normal inspection. Absent: tenderness, meningismus, lymphadenopathy Respiratory exam: Present: normal lung sounds bilaterally. Absent: respiratory distress, wheezes, rales, rhonchi, stridor Cardiovascular Exam: Present: regular rate, normal rhythm, normal heart sounds. Absent: systolic murmur, diastolic murmur, rubs, gallop, clicks GI/Abdominal exam: Present: soft, normal bowel sounds. Absent: distended, tenderness, guarding, rebound, rigid Extremities exam: Present: normal inspection, full ROM, normal capillary refill. Absent: tenderness, pedal edema, joint swelling, calf tenderness Back exam: Present: normal inspection Neurological exam: Present: alert, oriented X3, CN II-XII intact Psychiatric exam: Present: normal affect, normal mood Skin exam: Present: warm, dry, intact, normal color. 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 ] Respiratory 22 18 Rate Blood Pressure 121/82 100/62 O2 Sat by Pulse 97 97 Oximetry - Reevaluation(s) Reevaluation #1: Medical record is reviewed Patient symptoms are significantly improved Patient informed of results and questions answered Patient is in no acute distress Reevaluation #2: 06/22/21 06:50 Patient has adequate pain control with no significant findings Reevaluation #3: 06/22/21 06:50 Patient is informed of results and questions answered - Consultations Consultation #1: Spoke with Radiologist regarding computed tomography scan findings, no concern for acute process Medical Decision Making - Medical Decision Making 21 female to the emergency department for evaluation patient presents today for evaluation regards to epigastric abdominal pain. CT scans and labwork are normal here in the ER patient can be discharged home - Lab Data Result diagrams: 06/22/21 05:21 06/22/21 05:21 Lab Results 06/22/21 06/22/21 06/22/21 Range/Units 05:21 05:21 05:21 WBC 10.6 (3.8-10.6) k/uL RBC 4.81 (3.80-5.40) m/uL Hgb 14.3 (11.4-16.0) gm/dL Hct 42.1 (34.0-46.0) % MCV 87.7 (80.0-100.0) fL MCH 29.8 (25.0-35.0) pg MCHC 34.0 (31.0-37.0) g/dL RDW 11.9 (11.5-15.5) % Plt Count 302 (150-450) k/uL MPV 6.7 Neutrophils % 74 % Lymphocytes % 19 % Monocytes % 6 % Eosinophils % 1 % Basophils % 0 % Neutrophils # 7.8 H (1.3-7.7) k/uL Lymphocytes # 2.0 (1.0-4.8) k/uL Monocytes # 0.6 (0-1.0) k/uL Eosinophils # 0.1 (0-0.7) k/uL Basophils # 0.0 (0-0.2) k/uL PT 10.2 (9.0-12.0) sec INR 0.9 (<1.2) APTT 21.9 L (22.0-30.0) sec D-Dimer 0.57 (<0.60) mg/L FEU Sodium 137 (137-145) mmol/L Potassium 3.7 (3.5-5.1) mmol/L Chloride 107 (98-107) mmol/L Carbon Dioxide 21 L (22-30) mmol/L Anion Gap 9 mmol/L BUN 6 L (7-17) mg/dL Creatinine 0.58 (0.52-1.04) mg/dL Est GFR (CKD-EPI)AfAm >90 (>60 ml/min/1.73 sqM) Est GFR (CKD-EPI)NonAf >90 (>60 ml/min/1.73 sqM) Glucose 129 H (74-99) mg/dL Calcium 9.3 (8.4-10.2) mg/dL Magnesium 1.8 (1.6-2.3) mg/dL Total Bilirubin 0.4 (0.2-1.3) mg/dL AST 26 (14-36) U/L ALT 16 (4-34) U/L Alkaline Phosphatase 63 (38-126) U/L Troponin I (0.000-0.034) ng/mL NT-Pro-B Natriuret Pep pg/mL Total Protein 6.4 (6.3-8.2) g/dL Albumin 3.6 (3.5-5.0) g/dL Lipase 38 (23-300) U/L 06/22/21 06/22/21 Range/Units 05:21 05:21 WBC (3.8-10.6) k/uL RBC (3.80-5.40) m/uL Hgb (11.4-16.0) gm/dL Hct (34.0-46.0) % MCV (80.0-100.0) fL MCH (25.0-35.0) pg MCHC (31.0-37.0) g/dL RDW (11.5-15.5) % Plt Count (150-450) k/uL MPV Neutrophils % % Lymphocytes % % Monocytes % % Eosinophils % % Basophils % % Neutrophils # (1.3-7.7) k/uL Lymphocytes # (1.0-4.8) k/uL Monocytes # (0-1.0) k/uL Eosinophils # (0-0.7) k/uL Basophils # (0-0.2) k/uL PT (9.0-12.0) sec INR (<1.2) APTT (22.0-30.0) sec D-Dimer (<0.60) mg/L FEU Sodium (137-145) mmol/L Potassium (3.5-5.1) mmol/L Chloride (98-107) mmol/L Carbon Dioxide (22-30) mmol/L Anion Gap mmol/L BUN (7-17) mg/dL Creatinine (0.52-1.04) mg/dL Est GFR (CKD-EPI)AfAm (>60 ml/min/1.73 sqM) Est GFR (CKD-EPI)NonAf (>60 ml/min/1.73 sqM) Glucose (74-99) mg/dL Calcium (8.4-10.2) mg/dL Magnesium (1.6-2.3) mg/dL Total Bilirubin (0.2-1.3) mg/dL AST (14-36) U/L ALT (4-34) U/L Alkaline Phosphatase (38-126) U/L Troponin I <0.012 (0.000-0.034) ng/mL NT-Pro-B Natriuret Pep 358 pg/mL Total Protein (6.3-8.2) g/dL Albumin (3.5-5.0) g/dL Lipase (23-300) U/L - EKG Data -: EKG Interpreted by Me (EKG shows sinus rhythm 97 CT 174 QRS 100 QTc 439) - Radiology Data Radiology results: report reviewed (CTA chest CT abdomen and pelvis shows no significant acute disease), image reviewed Disposition Clinical Impression: Intractable pain, Chest pain, Abdominal pain, Postoperative pain Disposition: HOME SELF-CARE Condition: Good Instructions (If sedation given, give patient instructions): Abdominal Pain (ED) Is patient prescribed a controlled substance at d/c from ED?: No Referrals: Mich Ho MD [Primary Care Provider] - 1-2 days
[2021-06-22 05:32] LABS: Basophils % (A) 0 %; Eosinophils # (A) 0.1 k/uL (0-0.7); Eosinophils % (A) 1 %; HCT 42.1 % (34.0-46.0); HGB 14.3 gm/dL (11.4-16.0); Lymphocytes % (A) 19 %; MCH 29.8 pg (25.0-35.0); MCV 87.7 fL (80.0-100.0); Mean Platelet Volume 6.7; Monocytes # (A) 0.6 k/uL (0-1.0); Monocytes % (A) 6 %; Neutrophils # (A) 7.8 k/uL (1.3-7.7); Neutrophils % (A) 74 %; Platelet Count 302 k/uL (150-450); RBC 4.81 m/uL (3.80-5.40); RDW 11.9 % (11.5-15.5); WBC 10.6 k/uL (3.8-10.6)
[2021-06-22] MEDS ORDERED: FAMOTIDINE 20 MG/2 ML VIAL IV STA (05:36)
[2021-06-22] MEDS ORDERED: diphenhydrAMINE 50 MG/ML 1 ML VIAL IVP STA (05:36)
[2021-06-22] MEDS ORDERED: methylPREDNISolone SOD SUCCI 125 MG/2 ML VIAL IV STA (05:36)
[2021-06-22 05:44] LABS: ALT 16 U/L (4-34); AST 26 U/L (14-36); African American GFR (CKD) >90 (>60 ml/min/1.73 sqM); Albumin 3.6 g/dL (3.5-5.0); Alkaline Phosphatase 63 U/L (38-126); Anion Gap 9 mmol/L; Blood Urea Nitrogen 6 mg/dL (7-17); Calcium 9.3 mg/dL (8.4-10.2); Carbon Dioxide 21 mmol/L (22-30); Chloride 107 mmol/L (98-107); Glucose 129 mg/dL (74-99); Magnesium 1.8 mg/dL (1.6-2.3); Non-African American GFR(CKD) >90 (>60 ml/min/1.73 sqM); Potassium 3.7 mmol/L (3.5-5.1); Sodium 137 mmol/L (137-145); Total Bilirubin 0.4 mg/dL (0.2-1.3); Total Protein 6.4 g/dL (6.3-8.2)
[2021-06-22 06:00] LABS: Lipase 38 U/L (23-300)
[2021-06-22 06:03] LABS: INR 0.9 (<1.2)
[2021-06-22 06:04] LABS: Partial Thromboplastin Time 21.9 sec (22.0-30.0); Prothrombin Time 10.2 sec (9.0-12.0)
--- NOTE | 2021-06-22 06:34 | CT ---
EXAMINATION TYPE: CT angio chest DATE OF EXAM: 06/22/2021 COMPARISON: None HISTORY: pain CT DLP: 730.1 mGycm Automated exposure control for dose reduction was used. CONTRAST: Performed with IV Contrast, patient injected with 100 mL of Isovue 370. There are 3-D post processed images. There is some mild groundglass interstitial infiltrates in the posterior lung aguilar. There is mild p atchy atelectasis in the posterior lung aguilar. Heart size is fairly normal. There is no pericardial effusion. There is some pleural thickening and no evidence of pleural fluid. There are no hilar masses. There is no mediastinal adenopathy. There is normal contrast opacification of the pulmonary arteries. There are no filling defects. The bony thorax appears intact. Thoracic ao rta is intact. There is no aneurysm or dissection. IMPRESSION: No evidence of pulmonary embolism. Interstitial infiltrates and atelectasis in the posterior lung fie lds bilaterally. No suspicious pulmonary mass.
[2021-06-22 06:39] VITALS: RESP 18
--- NOTE | 2021-06-22 06:39 | CT ---
EXAMINATION TYPE: CT abdomen pelvis w con DATE OF EXAM: 06/22/2021 COMPARISON: 08/26/2011 HISTORY: pain CT DLP: 1121 mGycm Automated exposure control for dose reduction was used. CONTRAST: Performed with IV Contrast, patient injected with 100 mL of Isovue 370. There is interstitial infiltrate and atelectasis at the lung bases. There is mild pleural thickening at the lung bases. Liver spleen stomach pancreas gallbladder appear intact. Bile ducts are nondilated. There is no adrenal mass. There is small pneumoperitoneum. Kidneys show satisfactory contrast opacifi cation. There is no hydronephrosis. There is no retroperitoneal adenopathy. There is mild free fluid in the pelvis. Bladder distends smoothly. There is no mesenteric edema. There is no free air. There is no sign of a bowel obstruction. Appendix appears normal. Uterus is anteverted. I see no pelvic mass. The lumbar vertebra have normal spacing and alignment. Posterior elements are intact. There is no com pression fracture. The bony pelvis appears intact. IMPRESSION: There is mild pneumoperitoneum consistent with recent laparoscopic surgery. There is small amount of fluid in the pelvis that is intermediate attenuation and could be hemorrhage in this patient with his tory of ectopic recently. Normal appendix. Interstitial infiltrates and atelectasis at the lung bases.
[2021-06-22 07:23] VITALS: BP 103/69; PULSE 84; TEMP 98.7
== END 2021-06-22 07:23 | disposition home or self-care (01) ==
LOC: EC 04:40
DX: R07.9 Chest pain, unspecified (principal); R10.13 Epigastric pain; G89.18 Other acute postprocedural pain; R06.00 Dyspnea, unspecified; R11.2 Nausea with vomiting, unspecified; J45.909 Unspecified asthma, uncomplicated; F32.9 Major depressive disorder, single episode, unspecified; F17.290 Nicotine dependence, other tobacco product, uncomplicated
CPT/HCPCS: 36415; 93005; 85379; 83880; 80053; 83690; 83735; 84484; 85025; 85610; 85730; 71275; 74177; 99285; 96374; 96375 ×5; 96361; J2060; J2270; J1200; J2930; J2405; Q9967

== ENCOUNTER 2021-06-24 12:12 | Observation (INO) | payer OTHER ==
--- NOTE | 2021-06-24 12:58 | ED ---
General Adult HPI - General Source: patient, RN notes reviewed Mode of arrival: ambulatory Limitations: no limitations <Oscar Young - Last Filed: 06/24/21 12:56> <Tamika Gaytan - Last Filed: 06/25/21 00:56> - General Stated complaint: post op/fever/vomiting Time Seen by Provider: 06/24/21 12:45 - History of Present Illness Initial comments: this is a 21-year-old female presents emergency Department with chief complaint of abdominal pain, fever, nausea vomiting. Patient is status post ectopic surgery performed by Dr. Sanchez. Patient states she's been having increasing pain along with increasing nausea vomiting unable to keep her pain meds down. Patient had a temp of 101 at home. Patient had some urinary dysuria, patient's states that she's also been constipated. (Oscar Young) Patient is a 21-year-old female with past medical history of ruptured ectopic with resection of ectopic and partial left ovary on June 21. The patient is and was approximately 7 weeks along in this . she was diagnosed with an ectopic and was offered methotrexate however she refused. Dr. Sanchez was going to repeat an ultrasound however the patient had worsening pain and came into the emergency department. She was diagnosed with a ruptured ectopic was taken to the OR. She was discharged home and was seen again on the for some postop shortness of breath. She had a CT of her chest and abdomen and pelvis performed which demonstrated postop changes ho wever otherwise had an unremarkable study and she was discharged home. She has been taking Tylenol 3's for her postop pain. States that her left lower quadrant pain has been worsening in the patient is now developed fevers. States her temp was up to 101.4 at home. She has been alternating Motrin and Tylenol with last dose at 12 pm. She does admit to a mild nonproductive cough. Patient has not had bowel movement since surgery. admits to painful urination. No hematuria. she admits to some dark vaginal bleeding which is a little bit heavier than what has been post surgery. No other alleviating, precipitating or modifying factors (Tamika Gaytan) - Related Data Home Medications Medication Instructions Recorded Confirmed Albuterol Sulfate [Proair Hfa] 2 puff INHALATION RT-QID PRN 06/24/21 06/24/21 Previous Rx's Medication Instructions Recorded Acetaminophen-Codeine 300-30mg 2 tab PO Q6H PRN #20 tablet 06/21/21 [Tylenol #3] Ibuprofen [Motrin] 600 mg PO Q6HR PRN #30 tab 06/21/21 Allergies Allergy/AdvReac Type Severity Reaction Status Date / Time blueberry Allergy Rash/Hives Verified 06/24/21 17:43 cephalexin [From Keflex] Allergy Rash/Hives Verified 06/24/21 17:43 Fish Containing Products Allergy Anaphylaxis Verified 06/24/21 17:43 [Fish] iodine Allergy Rash/Hives Verified 06/24/21 17:43 kiwi Allergy Rash/Hives Verified 06/24/21 17:43 peas Allergy Rash/Hives Verified 06/24/21 17:43 Penicillins Allergy Rash/Hives Verified 06/24/21 17:43 raspberry Allergy Rash/Hives Verified 06/24/21 17:43 shellfish derived [Shellfish] Allergy Anaphylaxis Verified 06/24/21 17:43 venom-honey bee Allergy Anaphylaxis Verified 06/24/21 17:43 [bee venom (honey bee)] amoxicillin [Amoxicillin] AdvReac Rash/Hives Verified 06/24/21 17:43 erythromycin base AdvReac Rash/Hives Verified 06/24/21 17:43 [Erythromycin Base] lavender (Lavandula AdvReac Rash/Hives Verified 06/24/21 17:43 angustifolia) Review of Systems ROS Other: All systems not noted in ROS Statement are negative. <Oscar Young - Last Filed: 06/24/21 12:56> ROS Other: All systems not noted in ROS Statement are negative. <Tamika Gaytan - Last Filed: 06/25/21 00:56> ROS Statement: Those systems with pertinent positive or pertinent negative responses have been documented in the HPI. Past Medical History Past Medical History: Asthma Additional Past Medical History / Comment(s): Ob history: First was an SAB. Second was a vaginal delivery. This is her third and she had care with ks since 9 weeks. O+, abs neg, Rub nonimmune, RPR nonreactive, HIV NR, toxo neg. GBS negative. History of Any Multi-Drug Resistant Organisms: None Reported Past Surgical History: No Surgical Hx Reported Past Anesthesia/Blood Transfusion Reactions: No Reported Reaction Past Psychological History: Depression Smoking Status: Vaper Past Alcohol Use History: None Reported Past Drug Use History: None Reported - Past Family History Mother Family Medical History: Cancer, Congestive Heart Failure (CHF), Diabetes Mellitus, Rheumatoid Arthritis (RA) Additional Family Medical History / Comment(s): breast cancer. <Oscar Young - Last Filed: 06/24/21 12:56> General Exam General appearance: alert, in no apparent distress Head exam: Present: atraumatic, normocephalic, normal inspection Eye exam: Present: normal appearance, PERRL, EOMI. Absent: scleral icterus, conjunctival injection, periorbital swelling ENT exam: Present: normal exam, mucous membranes moist Neck exam: Present: normal inspection. Absent: tenderness, meningismus, lymphadenopathy Respiratory exam: Present: normal lung sounds bilaterally. Absent: respiratory distress, wheezes, rales, rhonchi, stridor Cardiovascular Exam: Present: normal rhythm, tachycardia, normal heart sounds. Absent: systolic murmur, diastolic murmur, rubs, gallop, clicks GI/Abdominal exam: Present: soft, tenderness, guarding, rebound, diminished bowel sounds. Absent: distended, rigid External exam: Present: normal external exam Speculum exam: Present: vaginal bleeding. Absent: vaginal discharge, tissue Extremities exam: Present: normal inspection, full ROM, normal capillary refill. Absent: tenderness, pedal edema, joint swelling, calf tenderness Back exam: Present: normal inspection Neurological exam: Present: alert, oriented X3, CN II-XII intact Psychiatric exam: Present: normal affect, normal mood Skin exam: Present: warm, dry, intact, normal color. Absent: rash <Tamika Gaytan - Last Filed: 06/25/21 00:56> Course <Tamika Gaytan - Last Filed: 06/25/21 00:56> Vital Signs 06/24/21 12:55 Temperature 98.6 F Pulse Rate 107 H Respiratory 18 Rate Blood Pressure 123/70 O2 Sat by Pulse 97 Oximetry - Reevaluation(s) Reevaluation #1: Spoke with Dr. Bates - admit to Dr. Sanchez on mother baby unit. Okay with antibiotic choice. Recommending CT of abdomen. 06/24/21 [id number] (Tamika Gaytan) Medical Decision Making - Lab Data Result diagrams: 06/24/21 13:25 06/24/21 20:58 <Tamika Gaytan - Last Filed: 06/25/21 00:56> - Medical Decision Making Upon arrival patient is placed into room 27. A thorough history and physical exam is performed. IV is established laboratory studies were conducted. Ultrasound is performed and a chest x-ray is completed. Review the patient's labs demonstrate a white blood cell count of 23.6. Previously 2 days ago the patient's white blood cell count was 10.6. HCG is coming down to 451. Urinalysis is not a clean catch however there are 112 white blood cells and rare bacteria. Coronavirus is not detected. Chest x-ray demonstrates no acute cardiopulmonary process with postoperative pneumoperitoneum. Ultrasound demonstrates fluid and complex echogenicity around the right ovary. Left ovary appears normal 2.3 similar thick-walled mass with small central fluid in the left adnexal region still present adjacent to the left ovary which could be ectopic versus residual blood. Due to the elevated white blood cell count blood cultures were obtained and the patient was started on gentamicin and clindamycin. I did call and speak with Dr. Bell. He requests that the patient be admitted to Dr. Sanchez, remain nothing by mouth and that a repeat CT is performed at this time. Admission orders are placed. The patient did agree to the treatment plan. CT is performed after the patient is given pretreatment. CT demonstrates fluid in the pelvis which could be hemorrhagic. Complex mass in the pelvis that has periphery of fat and central fluid or soft tissue component of uncertain significance. Mild pneumoperitoneum consistent with a repeat and laparoscopic surgery. Fluid in the pelvis and complex mass are increased in size compared the CT 2 days ago. Patient was then taken to the floor in stable condition (Tamika Gaytan) - Lab Data Lab Results 06/24/21 06/24/21 06/24/21 Range/Units 13:25 13:25 13:25 WBC 23.6 H (3.8-10.6) k/uL RBC 4.41 (3.80-5.40) m/uL Hgb 12.9 (11.4-16.0) gm/dL Hct 38.7 (34.0-46.0) % MCV 87.9 (80.0-100.0) fL MCH 29.3 (25.0-35.0) pg MCHC 33.4 (31.0-37.0) g/dL RDW 12.1 (11.5-15.5) % Plt Count 354 (150-450) k/uL MPV 6.9 Neutrophils % 76 % Lymphocytes % 16 % Monocytes % 7 % Eosinophils % 1 % Basophils % 0 % Neutrophils # 17.8 H (1.3-7.7) k/uL Lymphocytes # 3.7 (1.0-4.8) k/uL Monocytes # 1.5 H (0-1.0) k/uL Eosinophils # 0.2 (0-0.7) k/uL Basophils # 0.1 (0-0.2) k/uL Sodium 138 (137-145) mmol/L Potassium 3.6 (3.5-5.1) mmol/L Chloride 103 (98-107) mmol/L Carbon Dioxide 25 (22-30) mmol/L Anion Gap 10 mmol/L BUN 10 (7-17) mg/dL Creatinine 0.56 (0.52-1.04) mg/dL Est GFR (CKD-EPI)AfAm >90 (>60 ml/min/1.73 sqM) Est GFR (CKD-EPI)NonAf >90 (>60 ml/min/1.73 sqM) Glucose 87 (74-99) mg/dL Plasma Lactic Acid Jefe 0.9 (0.7-2.0) mmol/L Calcium 9.5 (8.4-10.2) mg/dL Total Bilirubin 1.0 (0.2-1.3) mg/dL AST 22 (14-36) U/L ALT 13 (4-34) U/L Alkaline Phosphatase 68 (38-126) U/L Total Protein 6.8 (6.3-8.2) g/dL Albumin 4.0 (3.5-5.0) g/dL Lipase 20 L (23-300) U/L HCG, Quant 451.6 mIU/mL Urine Color Urine Appearance (Clear) Urine pH (5.0-8.0) Ur Specific Combs (1.001-1.035) Urine Protein (Negative) Urine Glucose (UA) (Negative) Urine Ketones (Negative) Urine Blood (Negative) Urine Nitrite (Negative) Urine Bilirubin (Negative) Urine Urobilinogen (<2.0) mg/dL Ur Leukocyte Esterase (Negative) Urine RBC (0-5) /hpf Urine WBC (0-5) /hpf Ur Squamous Epith Cells (0-4) /hpf Amorphous Sediment (None) /hpf Urine Bacteria (None) /hpf Urine Mucus (None) /hpf Coronavirus (PCR) (Not Detectd) 06/24/21 06/24/21 Range/Units 13:40 14:46 WBC (3.8-10.6) k/uL RBC (3.80-5.40) m/uL Hgb (11.4-16.0) gm/dL Hct (34.0-46.0) % MCV (80.0-100.0) fL MCH (25.0-35.0) pg MCHC (31.0-37.0) g/dL RDW (11.5-15.5) % Plt Count (150-450) k/uL MPV Neutrophils % % Lymphocytes % % Monocytes % % Eosinophils % % Basophils % % Neutrophils # (1.3-7.7) k/uL Lymphocytes # (1.0-4.8) k/uL Monocytes # (0-1.0) k/uL Eosinophils # (0-0.7) k/uL Basophils # (0-0.2) k/uL Sodium (137-145) mmol/L Potassium (3.5-5.1) mmol/L Chloride (98-107) mmol/L Carbon Dioxide (22-30) mmol/L Anion Gap mmol/L BUN (7-17) mg/dL Creatinine (0.52-1.04) mg/dL Est GFR (CKD-EPI)AfAm (>60 ml/min/1.73 sqM) Est GFR (CKD-EPI)NonAf (>60 ml/min/1.73 sqM) Glucose (74-99) mg/dL Plasma Lactic Acid Jefe (0.7-2.0) mmol/L Calcium (8.4-10.2) mg/dL Total Bilirubin (0.2-1.3) mg/dL AST (14-36) U/L ALT (4-34) U/L Alkaline Phosphatase (38-126) U/L Total Protein (6.3-8.2) g/dL Albumin (3.5-5.0) g/dL Lipase (23-300) U/L HCG, Quant mIU/mL Urine Color Yellow Urine Appearance Cloudy H (Clear) Urine pH 6.5 (5.0-8.0) Ur Specific Combs 1.014 (1.001-1.035) Urine Protein 1+ H (Negative) Urine Glucose (UA) Negative (Negative) Urine Ketones Trace H (Negative) Urine Blood Large H (Negative) Urine Nitrite Negative (Negative) Urine Bilirubin Negative (Negative) Urine Urobilinogen 4.0 (<2.0) mg/dL Ur Leukocyte Esterase Large H (Negative) Urine RBC 3 (0-5) /hpf Urine WBC 112 H (0-5) /hpf Ur Squamous Epith Cells 17 H (0-4) /hpf Amorphous Sediment Occasional H (None) /hpf Urine Bacteria Rare H (None) /hpf Urine Mucus Few H (None) /hpf Coronavirus (PCR) Not Detected (Not Detectd) Disposition <Oscar Young - Last Filed: 06/24/21 12:56> Is patient prescribed a controlled substance at d/c from ED?: No Decision to Admit Reason: Admit from EC Decision Date: 06/24/21 Decision Time: 16:33 <Tamika Gaytan - Last Filed: 06/25/21 00:56> Clinical Impression: Acute abdominal pain, Ruptured ectopic , Postoperative pain, Leukocytosis Disposition: ADMITTED IP TO THIS [facility] Condition: Serious
[2021-06-24] MEDS ORDERED: MORPHINE SULFATE 4 MG/ML SYRINGE IVP STA ×2 (13:24→14:59)
[2021-06-24] MEDS ORDERED: ONDANSETRON 4 MG/2 ML VIAL IVP STA (13:24)
[2021-06-24] MEDS ORDERED: SODIUM CHLORIDE 0.9% 1,000 ML IV ONE (13:24)
[2021-06-24 13:36] LABS: Basophils # (A) 0.1 k/uL (0-0.2); Basophils % (A) 0 %; Eosinophils # (A) 0.2 k/uL (0-0.7); Eosinophils % (A) 1 %; HCT 38.7 % (34.0-46.0); HGB 12.9 gm/dL (11.4-16.0); Lymphocytes # (A) 3.7 k/uL (1.0-4.8); Lymphocytes % (A) 16 %; MCH 29.3 pg (25.0-35.0); MCHC 33.4 g/dL (31.0-37.0); MCV 87.9 fL (80.0-100.0); Mean Platelet Volume 6.9; Monocytes # (A) 1.5 k/uL (0-1.0); Monocytes % (A) 7 %; Neutrophils # (A) 17.8 k/uL (1.3-7.7); Neutrophils % (A) 76 %; Platelet Count 354 k/uL (150-450); RBC 4.41 m/uL (3.80-5.40); RDW 12.1 % (11.5-15.5); WBC 23.6 k/uL (3.8-10.6)
[2021-06-24 13:49] LABS: ALT 13 U/L (4-34); AST 22 U/L (14-36); African American GFR (CKD) >90 (>60 ml/min/1.73 sqM); Alkaline Phosphatase 68 U/L (38-126); Anion Gap 10 mmol/L; Blood Urea Nitrogen 10 mg/dL (7-17); Calcium 9.5 mg/dL (8.4-10.2); Carbon Dioxide 25 mmol/L (22-30); Chloride 103 mmol/L (98-107); Glucose 87 mg/dL (74-99); Lipase 20 U/L (23-300); Non-African American GFR(CKD) >90 (>60 ml/min/1.73 sqM); Potassium 3.6 mmol/L (3.5-5.1); Sodium 138 mmol/L (137-145); Total Protein 6.8 g/dL (6.3-8.2)
--- NOTE | 2021-06-24 14:03 | XR ---
EXAMINATION TYPE: XR chest 2V DATE OF EXAM: 06/24/2021 COMPARISON: CT angiogram of the chest 06/22/2021 HISTORY: Cough and pain, postop ectopic surgery TECHNIQUE: Frontal and lateral views of the chest are obtained. FINDINGS: There is no focal air space opacity, pleural effusion, or pneumothorax seen. The cardiac silhouette size is within normal limits. There is air beneath the right hemidiaphragm which is presu mably due to patient's prior surgery. The osseous structures are intact. IMPRESSION: No acute cardiopulmonary process. Probable postoperative pneumoperitoneum, correlate
[2021-06-24 14:05] LABS: HCG,Quantitative Serum 451.6 mIU/mL
[2021-06-24] MEDS ORDERED: CLINDAMYCIN 900 MG in DEXTROSE 5% IN WATER 50 ML IVPB STA ×2 (14:39)
[2021-06-24] MEDS ORDERED: GENTAMICIN PER PHARMACY MISCELLANE SCH (14:45)
[2021-06-24] MEDS ORDERED: GENTAMICIN 430 MG in SODIUM CHLORIDE 0.9% 100 ML IVPB ONE (15:15)
--- NOTE | 2021-06-24 15:31 | US ---
EXAMINATION TYPE: US pelvis complete transvag DATE OF EXAM: 06/24/2021 COMPARISON: US CLINICAL HISTORY: recent ectopic surgery, worsening pain. This past had laparoscopic surgery for left ectopic ; patient stated portion of left ovary removed; EC patient has increased p elvic pain and vaginal bleeding since then; Nausea and vomiting TECHNIQUE: Transvaginal (TV) and Transabdominal (TA) . Transabdominal sonographic images of the pel vis were acquired. Transvaginal sonographic images were medically necessary to better assess the fol lowing anatomy: ovaries Date of LMP: NA EXAM MEASUREMENTS: Uterus: 9.0 x 4.7 x 3.8 cm Endometrial Stripe: 0.4 cm Right Ovary: 4.6 x 4.0 x 3.2 cm Left Ovary: 4.0 x 4.1 x 2.6 cm 1. Uterus: Anteverted 2. Endometrium: appears wnl 3. Right Ovary: enlarge ovary; complex appearance to ovary with complex fluid area seen medial to r ight ovary (see image# [id number]) = 6.0 x 2.1 x 3.8cm 4. Left Ovary: enlarged, complex appearance to left ovary with thick walled hyperechoic complex oval mass = 2.2 x 2.5 x 2.1cm Spectral, color and waveform doppler imaging shows good arterial and venous flow within the ovaries ; there is no evidence for ovarian torsion. 5. Bilateral Adnexa: wnl 6. Posterior cul-de-sac: previously described complex fluid area is noted medial to right ovary. IMPRESSION: Normal uterus. There is some fluid and complex echogenicity around the right ovary. Left ovary britany ears normal. 2.3 cm thick-walled mass with small central fluid in the left adnexal region is apparent ly still present adjacent to the left ovary. This could be ectopic . According to the operat alexandra report the ectopic was removed so this could be some residual blood clot..
[2021-06-24 15:41] LABS: Amorphous Sediment,Urine Occasional /hpf; Appearance,Urine Cloudy (Clear); Bacteria,Urine Rare /hpf; Bilirubin,Urine Negative (Negative); Blood,Urine Large (Negative); Color,Urine Yellow; Glucose,Urine (UA) Negative (Negative); Ketones,Urine Trace (Negative); Leukocyte Esterase,Urine Large (Negative); Mucus,Urine Few /hpf; Nitrite,Urine Negative (Negative); PH, Urine 6.5 (5.0-8.0); Protein,Urine 1+ (Negative); RBC,Urine 3 /hpf (0-5); Specific Gravity,Urine 1.014 (1.001-1.035); Squamous Epithelial Cell,Urine 17 /hpf (0-4); WBC,Urine 112 /hpf (0-5)
[2021-06-24] MEDS ORDERED: FAMOTIDINE 20 MG/2 ML VIAL IV STA (16:08)
[2021-06-24] MEDS ORDERED: methylPREDNISolone SOD SUCCI 125 MG/2 ML VIAL IV STA (16:08)
[2021-06-24] MEDS ORDERED: diphenhydrAMINE 50 MG/ML 1 ML VIAL IVP STA (16:08)
[2021-06-24] MEDS ORDERED: ONDANSETRON 4 MG/2 ML VIAL IVP PRN (16:34)
[2021-06-24] MEDS ORDERED: MORPHINE SULFATE 4 MG/ML SYRINGE IV PRN (16:34)
[2021-06-24] MEDS ORDERED: NALOXONE 0.4 MG/ML 1 ML VIAL IV PRN (16:34)
[2021-06-24] MEDS ORDERED: SODIUM CHLORIDE 0.9% 1,000 ML IV SCH (16:45)
--- NOTE | 2021-06-24 17:49 | CT ---
EXAMINATION TYPE: CT abdomen pelvis w con DATE OF EXAM: 06/24/2021 COMPARISON: 06/22/2021 HISTORY: Increasing abdominal pain, 3 days post ectopic surgery. CT DLP: 1194.3 mGycm Automated exposure control for dose reduction was used. CONTRAST: Performed with IV Contrast, patient injected with 100 mL of Isovue 300. There is mild subsegmental atelectasis at the lung bases. Heart size is normal. There is small pneumo peritoneum consistent with recent surgery. Liver spleen pancreas gallbladder stomach appear intact. T he bile ducts are not dilated. There is no adrenal mass. Kidneys show satisfactory contrast opacifica tion. There is no hydronephrosis. Ureters are not dilated. There is normal excretion on the delayed i mages. There is no retroperitoneal adenopathy. Appendix appears normal. There is some fat stranding in the pelvis. Uterus is anteverted. There is so me complex fluid in the cul-de-sac. There is rounded 3.3 cm mass posterior to the uterus in the cul-d e-sac that has 3.3 cm diameter and has a fat density periphery and central soft tissue density. Fluid measures up to 2.5 cm in thickness. The density of the fluid is 10 which is nonspecific. The lumbar vertebra appear intact. There is no compression fracture. Bony pelvis is intact. There is no evidence of a bowel obstruction. IMPRESSION: Fluid in the pelvis has density of T10 which could be hemorrhagic. There is a complex mass in the pel vis that has periphery of fat and central fluid or soft tissue component of uncertain significance. T here is a mild pneumoperitoneum consistent with the recent laparoscopic surgery. Fluid in the pelvis and a complex mass are increased compared to CT scan 2 days ago.
--- NOTE | 2021-06-24 18:58 | P.HPOB ---
History of Present Illness H&P Date: 06/24/21 Chief Complaint: Nausea, vomiting, fever, postoperative pain This patient is a pleasant 21-year-old 3-year-old 1 female who is status post a DaVinci laparoscopic excision of left ectopic on per Dr. Sanchez. Patient was found to have a left ovarian ectopic and subsequently had excision of this and also chromopertubation of bilateral fallopian tubes. There was some bleeding noted at the time of surgery apparently and therefore she did have surgical Snow placed. Patient states that she went home and the following day she had some shortness of breath did go to the emergency department on Friday morning. Patient that time included a CAT scan and CBC which both were consistent with normal postoperative findings. Patient apparently was subsequently discharged home. Patient called me this morning with complaints of fever, persistent nausea vomiting, and worsening lower abdominal pain. She states that she has eaten some but in general decreased appetite. She states at home she had a temperature to 101. Repeat imaging today shows a persistent complex area posterior to the uterus and in the left adnexa. CBC shows an elevated white count of 23.6 with a left shift. Patient does have a penicillin cephalosporin ALLERGY and therefore was given clindamycin and gentamicin in the emergency department. Beta hCG today is down to 451. Review of Systems Constitutional: Reports as per HPI Gastrointestinal: Reports as per HPI Genitourinary: Reports pelvic pain Past Medical History Past Medical History: Asthma Additional Past Medical History / Comment(s): Ob history: First was an SAB. Second was a vaginal delivery. This is her third and she had care with me since 9 weeks. O+, abs neg, Rub nonimmune, RPR nonreactive, HIV NR, toxo neg. GBS negative. History of Any Multi-Drug Resistant Organisms: None Reported Past Surgical History: No Surgical Hx Reported Additional Past Surgical History / Comment(s): partial oopherectomy, ectopic removal 06/21/2021 Past Anesthesia/Blood Transfusion Reactions: No Reported Reaction Past Psychological History: Depression Smoking Status: Vaper Past Alcohol Use History: None Reported Past Drug Use History: None Reported - Past Family History Mother Family Medical History: Cancer, Congestive Heart Failure (CHF), Diabetes Mellitus, Rheumatoid Arthritis (RA) Additional Family Medical History / Comment(s): breast cancer. Medications and Allergies Home Medications Medication Instructions Recorded Confirmed Type Acetaminophen-Codeine 300-30mg 2 tab PO Q6H PRN #20 tablet 06/21/21 06/24/21 Rx [Tylenol #3] Ibuprofen [Motrin] 600 mg PO Q6HR PRN #30 tab 06/21/21 06/24/21 Rx Albuterol Sulfate [Proair Hfa] 2 puff INHALATION RT-QID PRN 06/24/21 06/24/21 H istory Allergies Allergy/AdvReac Type Severity Reaction Status Date / Time blueberry Allergy Rash/Hives Verified 06/24/21 17:43 cephalexin [From Keflex] Allergy Rash/Hives Verified 06/24/21 17:43 Fish Containing Products Allergy Anaphylaxis Verified 06/24/21 17:43 [Fish] iodine Allergy Rash/Hives Verified 06/24/21 17:43 kiwi Allergy Rash/Hives Verified 06/24/21 17:43 peas Allergy Rash/Hives Verified 06/24/21 17:43 Penicillins Allergy Rash/Hives Verified 06/24/21 17:43 raspberry Allergy Rash/Hives Verified 06/24/21 17:43 shellfish derived [Shellfish] Allergy Anaphylaxis Verified 06/24/21 17:43 venom-honey bee Allergy Anaphylaxis Verified 06/24/21 17:43 [bee venom (honey bee)] amoxicillin [Amoxicillin] AdvReac Rash/Hives Verified 06/24/21 17:43 erythromycin base AdvReac Rash/Hives Verified 06/24/21 17:43 [Erythromycin Base] lavender (Lavandula AdvReac Rash/Hives Verified 06/24/21 17:43 angustifolia) Exam Vital Signs Temp Pulse Pulse Resp BP BP Pulse Ox 06/24/21 17:44 99.0 F 84 16 109/73 06/24/21 17:20 90 20 103/67 99 06/24/21 12:55 98.6 F 107 H 18 123/70 97 Intake and Output 06/24/21 06/24/21 06/24/21 06:59 14:59 22:59 Other: Weight 81.193 kg 81.193 kg - OBG Physical Exam Abdomen: Examination is limited to the abdomen. Incisions are intact and dry. Her abdomen is generalized tenderness to deep palpation. There is no rebound. Abdomen: no diffuse tenderness, no bruit present, no guarding noted, no hepatomegaly, no splenomegaly, no mass Results Result Diagrams: 06/24/21 13:25 06/24/21 13:25 Abnormal Lab Results - Last 24 Hours (Table) 06/24/21 06/24/21 06/24/21 Range/Units 13:25 13:25 14:46 WBC 23.6 H (3.8-10.6) k/uL Neutrophils # 17.8 H (1.3-7.7) k/uL Monocytes # 1.5 H (0-1.0) k/uL Lipase 20 L (23-300) U/L Urine Appearance Cloudy H (Clear) Urine Protein 1+ H (Negative) Urine Ketones Trace H (Negative) Urine Blood Large H (Negative) Ur Leukocyte Esterase Large H (Negative) Urine WBC 112 H (0-5) /hpf Ur Squamous Epith Cells 17 H (0-4) /hpf Amorphous Sediment Occasional H (None) /hpf Urine Bacteria Rare H (None) /hpf Urine Mucus Few H (None) /hpf Assessment and Plan Assessment: This is a pleasant 21-year-old 3 para 1 female status post laparoscopic surgery on now with elevated WBC, fever at home, and increased postoperative pain. Imaging on CAT scan does show densities in the pelvis however these are most likely consistent with a hematoma and also since surgical's Snow was used this oftentimes will show up (incorrectly) as a post operative abscess. Hemoglobin is stable. Certainly the patient could have developed on intra-abdominal infection from her chromopertubation. Much less likely is the possibility of other complications including bowel injury. At this time her exam and findings are most consistent with an infection. Plan is to admit for close observation, serial CBC and blood work, and IV antibiotics. If patient's pain were to worsen or persist and elevated white count then we will consider general surgical consultation. I have discussed this plan with the patient and her partner in the agree with the clinical plan and all of her questions have been answered. (1) Leukocytosis Current Visit: Yes Status: Acute Code(s): D72.829 - ELEVATED WHITE BLOOD CELL COUNT, UNSPECIFIED SNOMED Code(s): 583474275 (2) Postoperative pain Current Visit: Yes Status: Acute Code(s): G89.18 - OTHER ACUTE POS TPROCEDURAL PAIN SNOMED Code(s): 819929149
[2021-06-24] MEDS: BUTORPHANOL 1 MG/ML 1 ML VIAL IV PRN (19:50)
[2021-06-24] MEDS: LACTATED RINGERS 1,000 ML IV SCH (19:51)
[2021-06-24 21:20] LABS: African American GFR (CKD) >90 (>60 ml/min/1.73 sqM); Non-African American GFR(CKD) >90 (>60 ml/min/1.73 sqM)
[2021-06-25] MEDS: BUTORPHANOL 1 MG/ML 1 ML VIAL IV PRN ×2 (00:08→04:02)
[2021-06-25 05:52] LABS: Basophils % (A) 0 %; Eosinophils % (A) 0 %; HCT 32.8 % (34.0-46.0); HGB 10.6 gm/dL (11.4-16.0); Lymphocytes # (A) 0.8 k/uL (1.0-4.8); Lymphocytes % (A) 5 %; MCH 29.1 pg (25.0-35.0); MCHC 32.4 g/dL (31.0-37.0); MCV 89.6 fL (80.0-100.0); Mean Platelet Volume 7.1; Monocytes # (A) 0.5 k/uL (0-1.0); Monocytes % (A) 4 %; Neutrophils # (A) 12.7 k/uL (1.3-7.7); Neutrophils % (A) 91 %; Platelet Count 298 k/uL (150-450); RBC 3.66 m/uL (3.80-5.40); RDW 11.9 % (11.5-15.5)
[2021-06-25 06:01] LABS: African American GFR (CKD) >90 (>60 ml/min/1.73 sqM); Anion Gap 7 mmol/L; Blood Urea Nitrogen 10 mg/dL (7-17); Calcium 9.2 mg/dL (8.4-10.2); Carbon Dioxide 25 mmol/L (22-30); Chloride 105 mmol/L (98-107); Glucose 123 mg/dL (74-99); Non-African American GFR(CKD) >90 (>60 ml/min/1.73 sqM); Potassium 4.6 mmol/L (3.5-5.1); Sodium 137 mmol/L (137-145)
[2021-06-25] MEDS ORDERED: GENTAMICIN 120 MG in SODIUM CHLORIDE 0.9% 100 ML IVPB SCH (08:00)
[2021-06-25] MEDS: LACTATED RINGERS 1,000 ML IV SCH ×3 (08:52→20:24)
[2021-06-25] MEDS: IBUPROFEN 600 MG TAB PO SCH ×3 (08:55→20:25)
[2021-06-25] MEDS: SENNOSIDES-DOCUSATE SODIUM 1 EACH TAB PO SCH ×2 (08:55→20:25)
[2021-06-25] MEDS: WATER IVPB SCH ×4 (10:24→22:08)
[2021-06-25] MEDS: SULFAMETHOX TMP IVPB SCH ×4 (10:24→22:08)
[2021-06-25] MEDS: DEXTROSE 5% IVPB SCH ×4 (10:24→22:08)
--- NOTE | 2021-06-25 12:24 | P.PN ---
Progress Note - Text Progress Note Date: 06/25/21 S/P removal of ectopic from left ovary done laparoscopically with da yennifer and placement of surgical snow. POD #4 Pt presented with pain, an increase in WBCs and fever. Urine culture is pending. Pain is improved. afebrile and WBC are coming down. I would like to continue IV antibiotics for 24 hours and await urine culture result. Incisions are clean, and intact. will cont IV abx for now and change IV pain meds to oral ibuprofen.
[2021-06-25] MEDS ORDERED: GENTAMICIN 100 MG in SODIUM CHLORIDE 0.9% 100 ML IVPB SCH (17:00)
[2021-06-26] MEDS: IBUPROFEN 600 MG TAB PO SCH ×2 (04:17→10:47)
[2021-06-26] MEDS: LACTATED RINGERS 1,000 ML IV SCH (05:43)
[2021-06-26 06:49] LABS: Basophils # (A) 0.1 k/uL (0-0.2); Basophils % (A) 0 %; Eosinophils # (A) 0.3 k/uL (0-0.7); Eosinophils % (A) 2 %; HCT 29.9 % (34.0-46.0); HGB 10.2 gm/dL (11.4-16.0); Lymphocytes # (A) 3.6 k/uL (1.0-4.8); Lymphocytes % (A) 32 %; MCH 29.7 pg (25.0-35.0); MCV 87.2 fL (80.0-100.0); Mean Platelet Volume 6.9; Monocytes # (A) 0.6 k/uL (0-1.0); Monocytes % (A) 5 %; Neutrophils # (A) 6.8 k/uL (1.3-7.7); Neutrophils % (A) 59 %; Platelet Count 364 k/uL (150-450); RBC 3.43 m/uL (3.80-5.40); RDW 12.6 % (11.5-15.5); WBC 11.4 k/uL (3.8-10.6)
[2021-06-26 07:03] LABS: African American GFR (CKD) >90 (>60 ml/min/1.73 sqM); Non-African American GFR(CKD) >90 (>60 ml/min/1.73 sqM)
[2021-06-26 08:02] VITALS: BP 106/67; PULSE 65; RESP 16; TEMP 98.3
[2021-06-26] MEDS ORDERED: GENTAMICIN TROUGH DUE 1 EACH MISC MISCELLANE ONE (08:30)
--- NOTE | 2021-06-26 08:39 | P.DS ---
Providers Date of admission: 06/24/21 16:34 Expected date of discharge: 06/26/21 Attending physician: Trang Sanchez Primary care physician: Vic Epps - Discharge Diagnosis(es) (1) Status post ectopic Current Visit: Yes Status: Acute (2) Status post laparoscopy Current Visit: Yes Status: Acute Hospital Course: Patient presented 3 days after a laparoscopic removal of an ectopic from the left ovary and placement of surgical's note. She had not had a bowel movement yet and was having a fever of 101 at home, will increased white blood cells here. She had lower pelvic abdominal pain. She was placed on gentamicin and clindamycin at first and then changed to Bactrim IV. She did improve over the course of 36 hours on IV antibiotics. Her white blood cell came down to 14 and then 211. There was no growth and a blood culture or urine culture. On CT there is a complex mass probably bloody blood clot and surgical's and O in the posterior cul-de-sac. The patient is doing very well right now she's had a bowel movement and ambulating voiding without difficulty, tolerating regular diet. Her incisions are clean, dry, intact. The patient will go home on oral antibiotics and follow-up with me within the week. Patient Condition at Discharge: Serious Plan - Discharge Summary New Discharge Prescriptions: New Sulfamethox-Tmp 800-160Mg [Bactrim DS 800-160 mg] 1 tab PO Q12HR #14 tab No Action Ibuprofen [Motrin] 600 mg PO Q6HR PRN #30 tab PRN Reason: Mild Pain Or Fever >= 100.5 Acetaminophen-Codeine 300-30mg [Tylenol #3] 2 tab PO Q6H PRN #20 tablet PRN Reason: Pain Albuterol Sulfate [Proair Hfa] 2 puff INHALATION RT-QID PRN PRN Reason: Shortness Of Breath Discharge Medication List Acetaminophen-Codeine 300-30mg [Tylenol #3] 2 tab PO Q6H PRN #20 tablet 06/21/21 [Rx] Ibuprofen [Motrin] 600 mg PO Q6HR PRN #30 tab 06/21/21 [Rx] Albuterol Sulfate [Proair Hfa] 2 puff INHALATION RT-QID PRN 06/24/21 [History] Sulfamethox-Tmp 800-160Mg [Bactrim DS 800-160 mg] 1 tab PO Q12HR #14 tab 06/26/21 [Rx] Follow up Appointment(s)/Referral(s): Mich Ho MD [Primary Care Provider] - 1-2 days Trang Sanchez DO [Doctor of Osteopathic Medicine] - 1 Week Discharge Disposition: HOME SELF-CARE
[2021-06-26] MEDS: SENNOSIDES-DOCUSATE SODIUM 1 EACH TAB PO SCH (09:28)
[2021-06-26] MEDS: SULFAMETHOX TMP IVPB SCH ×2 (09:47)
[2021-06-26] MEDS: WATER IVPB SCH ×2 (09:47)
[2021-06-26] MEDS: DEXTROSE 5% IVPB SCH ×2 (09:47)
[2021-06-26] MEDS ORDERED: GENTAMICIN PEAK DUE 1 EACH MISC MISCELLANE ONE (11:00)
== END 2021-06-26 11:20 | disposition home or self-care (01) ==
LOC: EC 12:12 → 4FBP 16:34
PROVIDERS: ADMIT Obstetrics & Gynecology; ATTEND Obstetrics & Gynecology
DX: R10.2 Pelvic and perineal pain (principal); R11.2 Nausea with vomiting, unspecified; D72.829 Elevated white blood cell count, unspecified; R50.9 Fever, unspecified; G89.18 Other acute postprocedural pain; K59.00 Constipation, unspecified; R30.0 Dysuria; J45.909 Unspecified asthma, uncomplicated; F32.9 Major depressive disorder, single episode, unspecified; Z20.822 Contact with and (suspected) exposure to COVID-19; Z88.0 Allergy status to penicillin; Z88.1 Allergy status to other antibiotic agents; Z91.030 Bee allergy status; Z91.013 Allergy to seafood; Z91.018 Allergy to other foods; Z98.890 Other specified postprocedural states; Z91.048 Other nonmedicinal substance allergy status; Z82.49 Family history of ischemic heart disease and other diseases of the circulatory system; Z83.3 Family history of diabetes mellitus; Z82.61 Family history of arthritis; Z80.3 Family history of malignant neoplasm of breast
CPT/HCPCS: 96376 ×2; 96361 ×2; 96366; 96367; 96375 ×2; 96365; 99285; 36415; 80053; 80048; 82565 ×2; 83605 ×2; 83690; 85025 ×3; 81001; 84702; 87040; 80170 ×2; 87086; 87635; 71046; 93975; 76856; 76830; 74177; G0378 ×3; J2270; J1200; J1580 ×2; J2930; J0595 ×2; J2405 ×2; Q9967

== ENCOUNTER 2022-03-17 08:02 | Emergency (ER) | payer OTHER ==
[2022-03-17 08:10] VITALS: TEMP 98.2
[2022-03-17 08:30] LABS: Appearance,Urine Clear (Clear); Bilirubin,Urine Negative (Negative); Blood,Urine Negative (Negative); Color,Urine Yellow; Glucose,Urine (UA) Negative (Negative); Ketones,Urine Negative (Negative); Leukocyte Esterase,Urine Moderate (Negative); Mucus,Urine Occasional /hpf; Nitrite,Urine Negative (Negative); Protein,Urine Negative (Negative); RBC,Urine 1 /hpf (0-5); Specific Gravity,Urine 1.028 (1.001-1.035); Squamous Epithelial Cell,Urine 1 /hpf (0-4); Urobilinogen,Urine <2.0 mg/dL (<2.0); WBC,Urine 1 /hpf (0-5)
[2022-03-17] MEDS ORDERED: ONDANSETRON 4 MG/2 ML VIAL IVP STA (08:39)
[2022-03-17] MEDS ORDERED: KETOROLAC 15 MG/ML 1 ML VIAL IVP STA (08:39)
[2022-03-17] MEDS ORDERED: SODIUM CHLORIDE 0.9% 1,000 ML IV STA (08:39)
--- NOTE | 2022-03-17 08:44 | ED ---
Abdominal Pain HPI - General Chief Complaint: Abdominal Pain Stated Complaint: abd pain Time Seen by Provider: 03/17/22 08:35 Source: patient, RN notes reviewed, old records reviewed Mode of arrival: ambulatory Limitations: no limitations - History of Present Illness Initial Comments: 21-year-old female presents to the emergency room with periumbilical abdominal pain that started last night. She denies dysuria, nausea or vomiting. Denies any fevers. She does work in healthcare. Patient has a history of ectopic , no other abdominal surgeries. She states her last menstrual period was March 06 but she is sexually active. She does vape, denies cigarette smoking. MD Complaint: abdominal pain -: days(s) (1) Location: periumbilical Radiation: none Migration to: no migration Severity scale (1-10): 9 Quality: sharp Improves With: nothing Worsens With: other (palpation) Associated Symptoms: nausea Treatments Prior to Arrival: NSAIDs - Related Data Home Medications Medication Instructions Recorded Confirmed Albuterol Sulfate [Proair Hfa] 2 puff INHALATION RT-QID PRN 06/24/21 06/24/21 Previous Rx's Medication Instructions Recorded Acetaminophen-Codeine 300-30mg 2 tab PO Q6H PRN #20 tablet 06/21/21 [Tylenol #3] Ibuprofen [Motrin] 600 mg PO Q6HR PRN #30 tab 06/21/21 Sulfamethox-Tmp 800-160Mg [Bactrim 1 tab PO Q12HR #14 tab 06/26/21 DS 800-160 mg] Famotidine [Pepcid] 20 mg PO DAILY #28 tablet 03/17/22 Allergies Allergy/AdvReac Type Severity Reaction Status Date / Time blueberry Allergy Rash/Hives Verified 03/17/22 08:10 cephalexin [From Keflex] Allergy Rash/Hives Verified 03/17/22 08:10 Fish Containing Products Allergy Anaphylaxis Verified 03/17/22 08:10 [Fish] iodine Allergy Rash/Hives Verified 03/17/22 08:10 kiwi Allergy Rash/Hives Verified 03/17/22 08:10 peas Allergy Rash/Hives Verified 03/17/22 08:10 Penicillins Allergy Rash/Hives Verified 03/17/22 08:10 raspberry Allergy Rash/Hives Verified 03/17/22 08:10 shellfish derived [Shellfish] Allergy Anaphylaxis Verified 03/17/22 08:10 venom-honey bee Allergy Anaphylaxis Verified 03/17/22 08:10 [bee venom (honey bee)] amoxicillin [Amoxicillin] AdvReac Rash/Hives Verified 03/17/22 08:10 erythromycin base AdvReac Rash/Hives Verified 03/17/22 08:10 [Erythromycin Base] lavender (Lavandula AdvReac Rash/Hives Verified 03/17/22 08:10 angustifolia) Review of Systems ROS Statement: Those systems with pertinent positive or pertinent negative responses have been documented in the HPI. ROS Other: All systems not noted in ROS Statement are negative. Past Medical History Past Medical History: Asthma Additional Past Medical History / Comment(s): Ob history: First was an SAB. Second was a vaginal delivery. This is her third and she had care with [facility] since 9 weeks. O+, abs neg, Rub nonimmune, RPR nonreactive, HIV NR, toxo neg. GBS negative. History of Any Multi-Drug Resistant Organisms: None Reported Past Surgical History: No Surgical Hx Reported Additional Past Surgical History / Comment(s): partial oopherectomy, ectopic removal 06/21/2021 Past Anesthesia/Blood Transfusion Reactions: No Reported Reaction Past Psychological History: Depression Smoking Status: Vaper Past Alcohol Use History: None Reported Past Drug Use History: None Reported - Past Family History Mother Family Medical History: Cancer, Congestive Heart Failure (CHF), Diabetes Mellitus, Rheumatoid Arthritis (RA) Additional Family Medical History / Comment(s): breast cancer. General Exam Limitations: no limitations General appearance: alert, in no apparent distress Head exam: Present: atraumatic, normocephalic Eye exam: Absent: scleral icterus, conjunctival injection ENT exam: Present: mucous membranes moist Neck exam: Present: normal inspection, full ROM. Absent: tenderness, meningismus Respiratory exam: Present: normal lung sounds bilaterally. Absent: respiratory distress, accessory muscle use Cardiovascular Exam: Present: regular rate, normal rhythm, normal heart sounds GI/Abdominal exam: Present: soft, tenderness (Periumbilical). Absent: distended, guarding, rebound, rigid Extremities exam: Present: normal inspection, full ROM, normal capillary refill. Absent: tenderness, pedal edema Back exam: Present: normal inspection, full ROM. Absent: tenderness, CVA tenderness (R), CVA tenderness (L), rash noted Neurological exam: Present: alert, oriented X3 Psychiatric exam: Present: normal affect, normal mood Skin exam: Present: warm, dry, intact, normal color. Absent: cyanosis, diaphoretic, petechiae, pallor Course Vital Signs 03/17/22 03/17/22 08:08 10:32 Temperature 98.2 F 98.2 F Pulse Rate 64 87 Respiratory 16 18 Rate Blood Pressure 125/82 110/78 O2 Sat by Pulse 98 98 Oximetry Medical Decision Making - Medical Decision Making 21-year-old female presents with periumbilical abdominal pain started last night. No dysuria, no nausea or vomiting, no fevers. Patient denies any vaginal bleeding. Labs are unremarkable. Urinalysis is negative for infection, negative for . Influenza and coronavirus swabs are negative. Patient was given Zofran, Toradol and a liter of normal saline and is feeling better. On physical exam there is no right lower quadrant abdominal pain. She was discharged home to follow up with her primary care doctor, this is likely gastritis. Strict return parameters were discussed. Patient agreeable to discharge. Case discussed with Dr. Holcomb. - Lab Data Result diagrams: 03/17/22 09:00 03/17/22 09:00 Lab Results 03/17/22 03/17/22 03/17/22 Range/Units 08:22 08:22 09:00 WBC 8.6 (3.8-10.6) k/uL RBC 4.64 (3.80-5.40) m/uL Hgb 13.8 (11.4-16.0) gm/dL Hct 41.2 (34.0-46.0) % MCV 88.9 (80.0-100.0) fL MCH 29.8 (25.0-35.0) pg MCHC 33.5 (31.0-37.0) g/dL RDW 12.7 (11.5-15.5) % Plt Count 334 (150-450) k/uL MPV 7.0 Neutrophils % 48 % Lymphocytes % 38 % Monocytes % 6 % Eosinophils % 5 % Basophils % 1 % Neutrophils # 4.1 (1.3-7.7) k/uL Lymphocytes # 3.3 (1.0-4.8) k/uL Monocytes # 0.5 (0-1.0) k/uL Eosinophils # 0.4 (0-0.7) k/uL Basophils # 0.1 (0-0.2) k/uL Sodium (137-145) mmol/L Potassium (3.5-5.1) mmol/L Chloride (98-107) mmol/L Carbon Dioxide (22-30) mmol/L Anion Gap mmol/L BUN (7-17) mg/dL Creatinine (0.52-1.04) mg/dL Est GFR (CKD-EPI)AfAm (>60 ml/min/1.73 sqM) Est GFR (CKD-EPI)NonAf (>60 ml/min/1.73 sqM) Glucose (74-99) mg/dL Plasma Lactic Acid Jefe (0.7-2.0) mmol/L Calcium (8.4-10.2) mg/dL Total Bilirubin (0.2-1.3) mg/dL AST (14-36) U/L ALT (4-34) U/L Alkaline Phosphatase (38-126) U/L Total Protein (6.3-8.2) g/dL Albumin (3.5-5.0) g/dL Amylase (30-110) U/L Lipase (23-300) U/L Urine Color Yellow Urine Appearance Clear (Clear) Urine pH 6.0 (5.0-8.0) Ur Specific [place] 1.028 (1.001-1.035) Urine Protein Negative (Negative) Urine Glucose (UA) Negative (Negative) Urine Ketones Negative (Negative) Urine Blood Negative (Negative) Urine Nitrite Negative (Negative) Urine Bilirubin Negative (Negative) Urine Urobilinogen <2.0 (<2.0) mg/dL Ur Leukocyte Esterase Moderate H (Negative) Urine RBC 1 (0-5) /hpf Urine WBC 1 (0-5) /hpf Ur Squamous Epith Cells 1 (0-4) /hpf Urine Mucus Occasional H (None) /hpf Urine HCG, Qual Not Detected (Not Detectd) Coronavirus (PCR) (Not Detectd) Influenza Type A RNA (Not Detectd) Influenza Type B (PCR) (Not Detectd) 03/17/22 03/17/22 03/17/22 Range/Units 09:00 09:00 09:00 WBC (3.8-10.6) k/uL RBC (3.80-5.40) m/uL Hgb (11.4-16.0) gm/dL Hct (34.0-46.0) % MCV (80.0-100.0) fL MCH (25.0-35.0) pg MCHC (31.0-37.0) g/dL RDW (11.5-15.5) % Plt Count (150-450) k/uL MPV Neutrophils % % Lymphocytes % % Monocytes % % Eosinophils % % Basophils % % Neutrophils # (1.3-7.7) k/uL Lymphocytes # (1.0-4.8) k/uL Monocytes # (0-1.0) k/uL Eosinophils # (0-0.7) k/uL Basophils # (0-0.2) k/uL Sodium 136 L (137-145) mmol/L Potassium 4.8 (3.5-5.1) mmol/L Chloride 108 H (98-107) mmol/L Carbon Dioxide 23 (22-30) mmol/L Anion Gap 5 mmol/L BUN 13 (7-17) mg/dL Creatinine 0.72 (0.52-1.04) mg/dL Est GFR (CKD-EPI)AfAm >90 (>60 ml/min/1.73 sqM) Est GFR (CKD-EPI)NonAf >90 (>60 ml/min/1.73 sqM) Glucose 92 (74-99) mg/dL Plasma Lactic Acid Jefe 0.7 (0.7-2.0) mmol/L Calcium 8.6 (8.4-10.2) mg/dL Total Bilirubin 0.5 (0.2-1.3) mg/dL AST 33 (14-36) U/L ALT 22 (4-34) U/L Alkaline Phosphatase 42 (38-126) U/L Total Protein 5.6 L (6.3-8.2) g/dL Albumin 3.3 L (3.5-5.0) g/dL Amylase 40 (30-110) U/L Lipase 53 (23-300) U/L Urine Color Urine Appearance (Clear) Urine pH (5.0-8.0) Ur Specific [place] (1.001-1.035) Urine Protein (Negative) Urine Glucose (UA) (Negative) Urine Ketones (Negative) Urine Blood (Negative) Urine Nitrite (Negative) Urine Bilirubin (Negative) Urine Urobilinogen (<2.0) mg/dL Ur Leukocyte Esterase (Negative) Urine RBC (0-5) /hpf Urine WBC (0-5) /hpf Ur Squamous Epith Cells (0-4) /hpf Urine Mucus (None) /hpf Urine HCG, Qual (Not Detectd) Coronavirus (PCR) (Not Detectd) Influenza Type A RNA Not Detected (Not Detectd) Influenza Type B (PCR) Not Detected (Not Detectd) 03/17/22 Range/Units 09:00 WBC (3.8-10.6) k/uL RBC (3.80-5.40) m/uL Hgb (11.4-16.0) gm/dL Hct (34.0-46.0) % MCV (80.0-100.0) fL MCH (25.0-35.0) pg MCHC (31.0-37.0) g/dL RDW (11.5-15.5) % Plt Count (150-450) k/uL MPV Neutrophils % % Lymphocytes % % Monocytes % % Eosinophils % % Basophils % % Neutrophils # (1.3-7.7) k/uL Lymphocytes # (1.0-4.8) k/uL Monocytes # (0-1.0) k/uL Eosinophils # (0-0.7) k/uL Basophils # (0-0.2) k/uL Sodium (137-145) mmol/L Potassium (3.5-5.1) mmol/L Chloride (98-107) mmol/L Carbon Dioxide (22-30) mmol/L Anion Gap mmol/L BUN (7-17) mg/dL Creatinine (0.52-1.04) mg/dL Est GFR (CKD-EPI)AfAm (>60 ml/min/1.73 sqM) Est GFR (CKD-EPI)NonAf (>60 ml/min/1.73 sqM) Glucose (74-99) mg/dL Plasma Lactic Acid Jefe (0.7-2.0) mmol/L Calcium (8.4-10.2) mg/dL Total Bilirubin (0.2-1.3) mg/dL AST (14-36) U/L ALT (4-34) U/L Alkaline Phosphatase (38-126) U/L Total Protein (6.3-8.2) g/dL Albumin (3.5-5.0) g/dL Amylase (30-110) U/L Lipase (23-300) U/L Urine Color Urine Appearance (Clear) Urine pH (5.0-8.0) Ur Specific [place] (1.001-1.035) Urine Protein (Negative) Urine Glucose (UA) (Negative) Urine Ketones (Negative) Urine Blood (Negative) Urine Nitrite (Negative) Urine Bilirubin (Negative) Urine Urobilinogen (<2.0) mg/dL Ur Leukocyte Esterase (Negative) Urine RBC (0-5) /hpf Urine WBC (0-5) /hpf Ur Squamous Epith Cells (0-4) /hpf Urine Mucus (None) /hpf Urine HCG, Qual (Not Detectd) Coronavirus (PCR) Not Detected (Not Detectd) Influenza Type A RNA (Not Detectd) Influenza Type B (PCR) (Not Detectd) Disposition Clinical Impression: Abdominal pain Disposition: HOME SELF-CARE Condition: Good Instructions (If sedation given, give patient instructions): Abdominal Pain (ED) Additional Instructions: Take Pepcid daily as prescribed. Increase your fluid intake. Follow-up with her primary care doctor next week. Return to the emergency room with a new concerning symptoms including increased pain, fevers or persistent nausea vomiting. Prescriptions: Famotidine [Pepcid] 20 mg PO DAILY #28 tablet Is patient prescribed a controlled substance at d/c from ED?: No Referrals: Lebron Riggs MD [Primary Care Provider] - 1-2 days Time of Disposition: 10:18
[2022-03-17 09:17] LABS: Basophils # (A) 0.1 k/uL (0-0.2); Basophils % (A) 1 %; Eosinophils # (A) 0.4 k/uL (0-0.7); Eosinophils % (A) 5 %; HCT 41.2 % (34.0-46.0); HGB 13.8 gm/dL (11.4-16.0); Lymphocytes # (A) 3.3 k/uL (1.0-4.8); Lymphocytes % (A) 38 %; MCH 29.8 pg (25.0-35.0); MCHC 33.5 g/dL (31.0-37.0); MCV 88.9 fL (80.0-100.0); Monocytes # (A) 0.5 k/uL (0-1.0); Monocytes % (A) 6 %; Neutrophils # (A) 4.1 k/uL (1.3-7.7); Neutrophils % (A) 48 %; Platelet Count 334 k/uL (150-450); RBC 4.64 m/uL (3.80-5.40); RDW 12.7 % (11.5-15.5); WBC 8.6 k/uL (3.8-10.6)
[2022-03-17 09:28] LABS: ALT 22 U/L (4-34); AST 33 U/L (14-36); African American GFR (CKD) >90 (>60 ml/min/1.73 sqM); Albumin 3.3 g/dL (3.5-5.0); Alkaline Phosphatase 42 U/L (38-126); Amylase 40 U/L (30-110); Anion Gap 5 mmol/L; Blood Urea Nitrogen 13 mg/dL (7-17); Calcium 8.6 mg/dL (8.4-10.2); Carbon Dioxide 23 mmol/L (22-30); Chloride 108 mmol/L (98-107); Glucose 92 mg/dL (74-99); Lipase 53 U/L (23-300); Non-African American GFR(CKD) >90 (>60 ml/min/1.73 sqM); Potassium 4.8 mmol/L (3.5-5.1); Sodium 136 mmol/L (137-145); Total Bilirubin 0.5 mg/dL (0.2-1.3); Total Protein 5.6 g/dL (6.3-8.2)
[2022-03-17 10:32] VITALS: BP 110/78; PULSE 87; RESP 18
== END 2022-03-17 10:32 | disposition home or self-care (01) ==
LOC: EC 08:02
DX: R10.9 Unspecified abdominal pain (principal); J45.909 Unspecified asthma, uncomplicated; F17.200 Nicotine dependence, unspecified, uncomplicated; Z91.030 Bee allergy status; Z91.048 Other nonmedicinal substance allergy status; Z91.013 Allergy to seafood; Z91.018 Allergy to other foods
CPT/HCPCS: 36415; 80053; 82150; 83605; 83690; 85025; 81001; 81025; 87502; 87635; 99284; 96374; 96375; 96361; J2405; J1885

== ENCOUNTER 2022-08-23 19:39 | Outpatient (CLI) | payer OTHER ==
[2022-08-23 19:50] LABS: Glucose,Whole Blood 95 mg/dL (70-110)
[2022-08-23 21:41] VITALS: BP 117/76; PULSE 89; RESP 18; TEMP 97
--- NOTE | 2022-09-10 21:21 | P.MSEPDOC ---
Presenting Problems - Arrival Data Date of Arrival on Unit: 08/23/22 Time of Arrival on Unit: 19:39 Mode of Transport: Wheelchair - Complaint OB-Reason for Admission/Chief Complaint: Dizziness Comment: shakiness and feeling like she is going to pass out Medical History - Information : 4 Para: 2 Term: 2 : 0 Abortions: Spontaneous or Elective: 1 Number of Living Children: 2 - Gestational Age Gestational Age by DILAN (wks/days): 20 Weeks and 6 Days Review of Systems - Review of Systems Constitutional: No problems Breast: No problems ENT: No problems Cardiovascular: No problems Respiratory: No problems Gastrointestinal: No problems Genitourinary: No problems Musculoskeletal: No problems Neurological: No problems Skin: No problems Vital Signs - Temperature Temperature: 97.0 F Temperature Source: Temporal Artery Scan - Pulse Pulse Oximetery Pulse Rate: 89 Pulse Assessment Method: Pulse Oximetry - Respirations Respiratory Rate: 18 Oxygen Delivery Method: Room Air O2 Sat by Pulse Oximetry: 100 - Blood Pressure Right Arm Blood Pressure: 117/76 Blood Pressure Mean: 89 Blood Pressure Source: Automatic Cuff Medical Screen Scoring - Assessment - Baby A Baseline FHR: 145 Physician Notification - Physician Notified Physician Notified Date: 08/23/22 Physician Notified Time: 20:43 Physician: Trang Sanchez New Order Received: Yes - Notification Comment Comment: Dr. Sanchez called, report given on maternal and status, c/o di zziness,. shakiness, and feeling like she is going to pass out since 0. Vitals are all WNL, FHR. is 145-150, BS is 95. Pt reports no complications with her and her other kids. had the flu last week. Orders to give pt water and a snack and if she feels better then. d/c home with instructions to rest and increase oral fluids. Maternal Triage Index - Maternal Triage Index Presenting for scheduled procedure w/no complaint: No - Stat/Priority 1 Stat Priority 1: No - Urgent/Priority 2 Urgent Priority 2: No - Prompt/Priority 3 Prompt Priority 3: No - Non-Urgent/Priority 4 Non-Urgent Priority 4: Yes Criteria Met for Priority 4: 20 6/7wks, dizziness, shakiness Disposition - Disposition OB Disposition: Discharge to home Discharge Date: 12/09/22 Discharge Time: 21:08 I agree with the RN Medical Screening Exam: Yes Case reviewed; plan agreed upon as documented in EMR&OBIX.: Yes Diagnosis: DIZZINESS AND GIDDINESS
== END 2022-08-23 21:08 | disposition home or self-care (01) ==
LOC: FBPOP 19:39
PROVIDERS: ATTEND Obstetrics & Gynecology
DX: O26.892 Other specified pregnancy related conditions, second trimester (principal); Z3A.20 20 weeks gestation of pregnancy; R42 Dizziness and giddiness; Z87.891 Personal history of nicotine dependence; Z91.041 Radiographic dye allergy status; Z91.013 Allergy to seafood; Z91.030 Bee allergy status; Z88.1 Allergy status to other antibiotic agents; Z88.0 Allergy status to penicillin; Z91.018 Allergy to other foods; Z91.048 Other nonmedicinal substance allergy status
CPT/HCPCS: 99213

== ENCOUNTER 2022-12-12 14:54 | Outpatient (CLI) | payer OTHER ==
[2022-12-12 16:17] VITALS: BP 112/67; PULSE 94; RESP 16; TEMP 97.8
--- NOTE | 2022-12-12 19:48 | P.MSEPDOC ---
Presenting Problems - Arrival Data Date of Arrival on Unit: 12/12/22 Time of Arrival on Unit: 14:54 Mode of Transport: Ambulatory - Complaint OB-Reason for Admission/Chief Complaint: Vaginal Bleeding Comment: pt reported moderate bright red bleeding with clots after being examined in office earlier today Medical History - Information : 4 Para: 2 Term: 2 : 0 Abortions: Spontaneous or Elective: 1 Number of Living Children: 2 - Gestational Age Gestational Age by DILAN (wks/days): 36 Weeks and 3 Days - History Complications: GDM Review of Systems - Review of Systems Constitutional: No problems Breast: No problems ENT: No problems Cardiovascular: No problems Respiratory: No problems Gastrointestinal: No problems Genitourinary: No problems Musculoskeletal: No problems Neurological: No problems Skin: No problems Vital Signs - Temperature Temperature: 97.8 F Temperature Source: Temporal Artery Scan - Pulse Right Brachial Pulse Rate: 94 Pulse Assessment Method: Automatic Cuff - Respirations Respiratory Rate: 16 Oxygen Delivery Method: Room Air O2 Sat by Pulse Oximetry: 97 - Blood Pressure Right Arm Blood Pressure: 112/67 Blood Pressure Mean: 82 Blood Pressure Source: Automatic Cuff Medical Screen Scoring - Assessment - Baby A Baseline FHR: 115 Heart Rate - NICHD Category: Category I (Normal) NST: Reactive Physician Notification - Physician Notified Physician Notified Date: 12/12/22 Physician Notified Time: 15:56 Physician: Reed Bell Order Received: Yes (dc home) Maternal Triage Index - Maternal Triage Index Presenting for scheduled procedure w/no complaint: No - Stat/Priority 1 Stat Priority 1: No - Urgent/Priority 2 Urgent Priority 2: No - Prompt/Priority 3 Prompt Priority 3: No - Non-Urgent/Priority 4 Non-Urgent Priority 4: Yes Criteria Met for Priority 4: sterile spec performed, no active bleeding noted Disposition - Disposition OB Disposition: Discharge to home, Written follow up instructions reviewed Discharge Date: 12/12/22 Discharge Time: 16:00 I agree with the RN Medical Screening Exam: Yes Case reviewed; plan agreed upon as documented in EMR&OBIX.: Yes Diagnosis: RELATED CONDITIONS, UNSPECIFIED, THIRD TRIMESTER (Patient presented to labor and delivery with complaints of spotting after having a cervical exam per the RN this afternoon in the office. heart tones are category 1. There is no evidence of any significant bleeding. Is obvious bleeding is from the cervix patient was reassured and discharged home.)
== END 2022-12-12 16:00 | disposition home or self-care (01) ==
LOC: FBPOP 14:54
PROVIDERS: ATTEND Obstetrics & Gynecology
DX: O26.893 Other specified pregnancy related conditions, third trimester (principal); O24.419 Gestational diabetes mellitus in pregnancy, unspecified control; Z3A.35 35 weeks gestation of pregnancy; Z91.018 Allergy to other foods; Z88.0 Allergy status to penicillin; Z88.1 Allergy status to other antibiotic agents; Z91.02 Food additives allergy status; Z91.013 Allergy to seafood; Z87.891 Personal history of nicotine dependence
CPT/HCPCS: 59025; G0463; 99213

== ENCOUNTER 2022-12-26 05:53 | Inpatient (IN) | payer OTHER ==
[2022-12-26] MEDS ORDERED: CARBOPROST TROMETHAMINE 250 MCG/ML 1 ML AMP IM PRN (06:09)
[2022-12-26] MEDS ORDERED: TRANEXAMIC ACID IN NACL,ISO-OS 1,000 MG in EMPTY BAG 1 BAG IV PRN (06:09)
[2022-12-26] MEDS ORDERED: TERBUTALINE 1 MG/ML VIAL SQ PRN (06:09)
[2022-12-26] MEDS ORDERED: OXYTOCIN 10 UNIT/ML 1 ML VIAL IM PRN (06:09)
[2022-12-26] MEDS ORDERED: METHYLERGONOVINE 0.2 MG/ML 1 ML AMP IM PRN (06:09)
[2022-12-26] MEDS ORDERED: miSOPROStoL 200 MCG TAB PO PRN (06:09)
[2022-12-26] MEDS ORDERED: LIDOCAINE 0.5% (PF) 5 MG/ML (50 ML SDV) SQ PRN (06:09)
[2022-12-26] MEDS ORDERED: OXYTOCIN 30 UNITS/500 ML NS 30 UNIT in SALINE 1 500ML.BAG IV SCH (06:15)
[2022-12-26] MEDS: LACTATED RINGERS 1,000 ML IV SCH ×2 (06:45→09:47)
[2022-12-26 07:18] LABS: Basophils % (A) 0 %; Eosinophils # (A) 0.2 k/uL (0-0.7); Eosinophils % (A) 2 %; HCT 29.2 % (34.0-46.0); HGB 10.2 gm/dL (11.4-16.0); Lymphocytes # (A) 2.4 k/uL (1.0-4.8); Lymphocytes % (A) 28 %; MCH 30.3 pg (25.0-35.0); MCHC 35.1 g/dL (31.0-37.0); MCV 86.3 fL (80.0-100.0); Mean Platelet Volume 8.5; Monocytes # (A) 0.4 k/uL (0-1.0); Monocytes % (A) 5 %; Neutrophils # (A) 5.2 k/uL (1.3-7.7); Neutrophils % (A) 62 %; Platelet Count 251 k/uL (150-450); RBC 3.38 m/uL (3.80-5.40); RDW 12.7 % (11.5-15.5); WBC 8.4 k/uL (3.8-10.6)
--- NOTE | 2022-12-26 07:23 | P.HPOB ---
History of Present Illness H&P Date: 12/26/22 Chief Complaint: induction of labor 22-year-old presents at 38 weeks and 3 days for induction of labor. She has gestational diabetes and has had some intermittent high blood pressures. [facility] recommended delivery between 37 and 39 weeks. Patient's cervix is 3-4 centers dilated, 80% effaced, and -2 station. She is curt irregularly. heart tones 135 with moderate variability and reactive. Review of Systems All systems: negative Constitutional: Denies chills, Denies fever Eyes: denies blurred vision, denies pain Ears, nose, mouth and throat: Denies headache, Denies sore throat Cardiovascular: Denies chest pain, Denies shortness of breath Respiratory: Denies cough Gastrointestinal: Denies abdominal pain, Denies diarrhea, Denies nausea, Denies vomiting Genitourinary: Denies dysuria, Denies hematuria Musculoskeletal: Denies myalgias Integumentary: Denies pruritus, Denies rash Neurological: Denies numbness, Denies weakness Psychiatric: Denies anxiety, Denies depression Endocrine: Denies fatigue, Denies weight change Past Medical History Past Medical History: Asthma Additional Past Medical History / Comment(s): Ob history: First was an SAB. Second and third pregnancies were a vaginal delivery. This is her fourth and she had care with me since first trimester. O+, abs neg, Rub nonimmune, RPR nonreactive, HIV NR, toxo neg. GBS negative. History of Any Multi-Drug Resistant Organisms: None Reported Past Surgical History: No Surgical Hx Reported Additional Past Surgical History / Comment(s): partial oopherectomy, ectopic removal 06/21/2021 Past Anesthesia/Blood Transfusion Reactions: No Reported Reaction Past Psychological History: Depression Smoking Status: Vaper Past Alcohol Use History: None Reported Past Drug Use History: None Reported - Past Family History Mother Family Medical History: Cancer, Congestive Heart Failure (CHF), Diabetes Mellitus, Rheumatoid Arthritis (RA) Additional Family Medical History / Comment(s): breast cancer. Medications and Allergies Home Medications Medication Instructions Recorded Confirmed Type Vit No.179/Iron/Folic 1 each PO DAILY 08/23/22 12/26/22 History [ Tablet] metFORMIN HCL 500 mg PO DAILY 12/26/22 12/26/22 History Allergies Allergy/AdvReac Type Severity Reaction Status Date / Time blueberry Allergy Rash/Hives Verified 12/12/22 15:13 cephalexin [From Keflex] Allergy Rash/Hives Verified 12/12/22 15:13 Fish Containing Products Allergy Anaphylaxis Verified 12/12/22 15:13 [Fish] iodine Allergy Rash/Hives Verified 12/12/22 15:13 kiwi Allergy Rash/Hives Verified 12/12/22 15:13 peas Allergy Rash/Hives Verified 12/12/22 15:13 Penicillins Allergy Rash/Hives Verified 12/12/22 15:13 raspberry Allergy Rash/Hives Verified 12/12/22 15:13 shellfish derived [Shellfish] Allergy Anaphylaxis Verified 12/12/22 15:13 venom-honey bee Allergy Anaphylaxis Verified 12/12/22 15:13 [bee venom (honey bee)] amoxicillin [Amoxicillin] AdvReac Rash/Hives Verified 12/12/22 15:13 erythromycin base AdvReac Rash/Hives Verified 12/12/22 15:13 [Erythromycin Base] lavender (Lavandula AdvReac Rash/Hives Verified 12/12/22 15:13 angustifolia) Exam Osteopathic Statement: *. No significant issues noted on an osteopathic structural exam other than those noted in the History and Physical/Consult. Vital Signs Temp Pulse Resp BP Pulse Ox 12/26/22 06:07 97.9 F 86 17 127/83 97 Intake and Output 12/25/22 12/26/22 12/26/22 22:59 06:59 14:59 Other: Weight 85.275 kg Heart: Regular rate and rhythm Lungs: Clear to auscultation bilaterally Abdomen: Soft, nontender Extremities: Negative Homans sign Results Result Diagrams: 12/26/22 06:45 Abnormal Lab Results - Last 24 Hours (Table) 12/26/22 Range/Units 06:45 RBC 3.38 L (3.80-5.40) m/uL Hgb 10.2 L (11.4-16.0) gm/dL Hct 29.2 L (34.0-46.0) % Assessment and Plan (1) Encounter for induction of labor Current Visit: Yes Status: Acute Code(s): Z34.90 - ENCNTR FOR SUPRVSN OF NORMAL , UNSP, UNSP TRIMESTER SNOMED Code(s): 870003711 (2) Gestational diabetes Current Visit: Yes Status: Acute Code(s): O24.419 - GESTATIONAL DIABETES MELLITUS IN , UNSP CONTROL SNOMED Code(s): 58584843 Plan: 1.Induction of labor with amniotomy and Pitocin 2. Anticipate normal vaginal delivery
[2022-12-26 08:00] LABS: Glucose,Whole Blood 82 mg/dL (70-110)
[2022-12-26 08:26] LABS: Amphetamine Screen,Urine Not Detected (NotDetected); Benzodiazepines Screen,Urine Not Detected (NotDetected); Cocaine Screen,Urine Not Detected (NotDetected); Methadone Screen, Urine Not Detected (NotDetected); Opiate Screen,Urine Not Detected (NotDetected); Phencyclidine Screen,Urine Not Detected (NotDetected); Tricyclic Antidepressant,Urine Not Detected (NotDetected); Urn Cannabinoid Scrn Not Detected (NotDetected)
[2022-12-26 08:27] LABS: Barbiturate Screen,Urine Not Detected (NotDetected); Oxycodone Screen, Urine Not Detected (NotDetected)
[2022-12-26] MEDS ORDERED: ROPIVACAINE 5 MG/ML 20 ML AMPULE ONE (09:21)
[2022-12-26] MEDS ORDERED: SODIUM CHLORIDE 0.9% 100 ML BAG ONE (09:21)
[2022-12-26] MEDS ORDERED: fentaNYL (PF) 50 MCG/ML 5 ML AMP ONE (09:21)
[2022-12-26] MEDS ORDERED: diphenhydrAMINE 50 MG CAP PO PRN (12:12)
[2022-12-26] MEDS ORDERED: LANOLIN CREAM 5 GM TUBE TOPICAL PRN (12:12)
[2022-12-26] MEDS ORDERED: HYDROCORTISONE 2.5% RECTAL CREAM 30 GM TUBE RECTAL PRN (12:12)
[2022-12-26] MEDS ORDERED: SIMETHICONE 80 MG CHEWABLE PO PRN (12:12)
[2022-12-26] MEDS ORDERED: BENZOCAINE/MENTHOL SPRAY 1 GM/SPRAY AEROSOL TOPICAL PRN (12:12)
[2022-12-26] MEDS ORDERED: diphenhydrAMINE 25 MG CAP PO PRN (12:12)
[2022-12-26] MEDS ORDERED: diphenhydrAMINE 50 MG/ML 1 ML VIAL IVP PRN ×2 (12:12)
[2022-12-26] MEDS ORDERED: ZOLPIDEM 5 MG TAB PO PRN (12:12)
--- NOTE | 2022-12-26 13:02 | P.PROBDLV ---
Vaginal Delivery Note - . Vaginal Delivery Note: 22-year-old presents at 38 weeks and 3 days for induction of labor. She has gestational diabetes and has had some intermittent high blood pressures. [facility] recommended delivery between 37 and 39 weeks. Patient's cervix is 3-4 centers dilated, 80% effaced, and -2 station. She is curt irregularly. heart tones 135 with moderate variability and reactive. Pitocin was started and amniotomy performed at 7:10 AM, clear fluid noted. When she was uncomfortable and 5 cm she got an epidural. Her cervix was completely dilated at 11:05 AM. She pushed and delivered a viable male over intact perineum under epidural anesthesia at 11:11 AM. Head delivered OA, anterior shoulder delivered gentle downward guidance for by posterior shoulder and rest of body. Nose and mouth bulb suctioned, cord clamped and cut, infant placed on mother's abdomen. Apgars 9, 9, weight 8 lbs. 3 oz. Placenta delivered spontaneously, intact with three-vessel cord at 11:18 AM. Vagina, cervix, and perineum were inspected. No lacerations noted. Estimated blood loss 100 mL. Mother and baby in stable condition.
[2022-12-26] MEDS: IBUPROFEN 600 MG TAB PO PRN ×2 (13:45→23:47)
[2022-12-26] MEDS: SENNOSIDES-DOCUSATE SODIUM 1 EACH TAB PO SCH (19:43)
[2022-12-26] MEDS: ACETAMINOPHEN TAB 325 MG TAB PO PRN (19:43)
[2022-12-27 06:05] LABS: Basophils # (A) 0.1 k/uL (0-0.2); Basophils % (A) 1 %; Eosinophils # (A) 0.3 k/uL (0-0.7); Eosinophils % (A) 2 %; HCT 26.1 % (34.0-46.0); HGB 8.9 gm/dL (11.4-16.0); Lymphocytes # (A) 3.1 k/uL (1.0-4.8); Lymphocytes % (A) 25 %; MCH 29.7 pg (25.0-35.0); MCHC 34.2 g/dL (31.0-37.0); MCV 86.9 fL (80.0-100.0); Mean Platelet Volume 8.2; Monocytes # (A) 0.7 k/uL (0-1.0); Monocytes % (A) 6 %; Neutrophils # (A) 8.2 k/uL (1.3-7.7); Neutrophils % (A) 66 %; Platelet Count 269 k/uL (150-450); WBC 12.4 k/uL (3.8-10.6)
--- NOTE | 2022-12-27 06:07 | P.PNOBGVD ---
Subjective - Subjective Patient reports: Reports appetite normal, Reports voiding normally, Reports pain well controlled, Reports ambulating normally : doing well, in NICU (Baby has a clavicle fracture and required some oxygen) Objective - Latest Vital Signs Latest vital signs: Vital Signs Temp Pulse Resp BP Pulse Ox 12/27/22 00:00 98 15 12/26/22 23:48 97.7 F 98 15 122/80 98 12/26/22 20:00 98.6 F 84 16 127/86 98 12/26/22 16:30 98.7 F 102 H 17 128/80 12/26/22 13:20 97.8 F 83 17 121/61 12/26/22 12:50 94 16 112/74 12/26/22 12:20 98.2 F 17 114/63 12/26/22 12:05 85 16 122/58 12/26/22 11:50 80 17 137/65 12/26/22 11:35 85 18 132/79 12/26/22 11:20 99.6 F 110 H 17 128/79 12/26/22 06:07 97.9 F 86 17 127/83 97 Intake and Output 12/26/22 12/26/22 12/27/22 14:59 22:59 06:59 Intake Total 1653.666 960 Output Total 200 Balance 1453.666 960 Intake: IV 1500 Intake, IV Titration 153.666 Amount Oxytocin 30 Units/500 ml 153.666 Ns 30 unit In Saline 1 500ml.bag @ Per Protocol IV .Q0M [facility] Rx#:[id number] Oral 960 Output: Output, Quantitative 200 Blood Loss Other: # Voids 1 1 - Exam Lungs: bilateral: normal Chest: Normal S1, Normal S2 Extremities: Present: normal Abdomen: Present: normal appearance, soft Uterus: Present: normal, firm - Labs Labs: Abnormal Lab Results - Last 24 Hours (Table) 12/26/22 Range/Units 06:45 RBC 3.38 L (3.80-5.40) m/uL Hgb 10.2 L (11.4-16.0) gm/dL Hct 29.2 L (34.0-46.0) % Assessment and Plan Assessment: Post day #1. Patient is resting without complaints. Vital signs are stable she's afebrile. Uterus is firm nontender and she is having normal lochia. Unfortunately her baby is in the special care nursery secondary to a clavicle fracture and some oxygen requirements. In general the baby is doing we ll otherwise. Plan today is to continue routine care most likely discharge home tomorrow (1) Normal vaginal delivery Current Visit: No Status: Acute Code(s): O80 - ENCOUNTER FOR FULL-TERM UNCOMPLICATED DELIVERY SNOMED Code(s): 14738248
[2022-12-27] MEDS: SENNOSIDES-DOCUSATE SODIUM 1 EACH TAB PO SCH ×2 (07:53→22:39)
[2022-12-27] MEDS: ACETAMINOPHEN TAB 325 MG TAB PO PRN (15:28)
--- NOTE | 2022-12-28 07:06 | P.PNOBGVD ---
Subjective - Subjective Patient reports: Reports appetite normal, Reports voiding normally, Reports pain well controlled, Reports ambulating normally : doing well, in NICU Objective - Latest Vital Signs Latest vital signs: Vital Signs Temp Pulse Resp BP Pulse Ox 12/27/22 22:47 98.2 F 73 18 115/76 12/27/22 15:48 97.9 F 72 16 112/76 98 12/27/22 07:57 98.1 F 76 15 118/82 98 - Exam Lungs: bilateral: normal Chest: Normal S1, Normal S2 Extremities: Present: normal Abdomen: Present: normal appearance, soft Uterus: Present: normal, firm Assessment and Plan Assessment: day #2. Patient is resting without new complaints. Vital signs are stable she's afebrile. Uterus is firm nontender and she is having normal lochia. I impression this is a normal course. Plan is to continue routine care discharge home later today (1) Normal vaginal delivery Current Visit: No Status: Acute Code(s): O80 - ENCOUNTER FOR FULL-TERM UNCOMPLICATED DELIVERY SNOMED Code(s): 09872103
--- NOTE | 2022-12-28 07:08 | P.DS ---
Providers Date of admission: 12/26/22 05:53 Expected date of discharge: 12/28/22 Attending physician: Trang Sanchez Primary care physician: Stated None - Discharge Diagnosis(es) (1) Normal vaginal delivery Current Visit: No Status: Acute Hospital Course: Please see dictated H&P per Dr. Sanchez on this patient's admission. Brief summary this is a pleasant 22-year-old 4 para 2 female 38-3/7 weeks gestation admitted to labor and delivery for induction of labor secondary to gestational hypertension and gestational diabetes. Patient is admitted has uncomplicated induction of labor. Please see Dr. Sanchez's dictated delivery note. Post day #2 patient's felt be stable for discharge home follow-up in 6 weeks. Procedures: Induction of labor and normal vaginal delivery Patient Condition at Discharge: Good Plan - Discharge Summary New Discharge Prescriptions: New Ibuprofen [Motrin] 600 mg PO Q6HR PRN #30 tab PRN Reason: Mild Pain (Scale 1 To 3) No Action metFORMIN HCL 500 mg PO DAILY Vit No.179/Iron/Folic [ Tablet] 1 each PO DAILY Discharge Medication List Vit No.179/Iron/Folic [ Tablet] 1 each PO DAILY 08/23/22 [History] Ibuprofen [Motrin] 600 mg PO Q6HR PRN #30 tab 12/26/22 [Rx] metFORMIN HCL 500 mg PO DAILY 12/26/22 [History] Follow up Appointment(s)/Referral(s): Trang Sanchez DO [Doctor of Osteopathic Medicine] - 02/06/23 11:15 am Patient Instructions/Handouts: Vaginal Delivery (DC) Activity/Diet/Wound Care/Special Instructions: No intercourse or anything per vagina for 6 weeks. Please call if any fever, chills, excessive vaginal bleeding, and/or abdominal pain Discharge Disposition: HOME SELF-CARE
[2022-12-28 09:59] VITALS: BP 127/89; PULSE 72; RESP 16; TEMP 98.1
[2022-12-28] MEDS: SENNOSIDES-DOCUSATE SODIUM 1 EACH TAB PO SCH (15:27)
== END 2022-12-28 17:00 | disposition home or self-care (01) | DRG 560 ==
LOC: 4FBP 05:53
PROVIDERS: ADMIT Obstetrics & Gynecology; ATTEND Obstetrics & Gynecology
PROC: 10E0XZZ Delivery of Products of Conception, External Approach (ICD-10-PCS; principal; 2022-12-26)
PROC: 3E0DXGC Introduction of Other Therapeutic Substance into Mouth and Pharynx, External Approach (ICD-10-PCS; 2022-12-26)
PROC: 10907ZC Drainage of Amniotic Fluid, Therapeutic from Products of Conception, Via Natural or Artificial Opening (ICD-10-PCS; 2022-12-26)
PROC: 3E033VJ Introduction of Other Hormone into Peripheral Vein, Percutaneous Approach (ICD-10-PCS; 2022-12-26)
DX: O13.4 Gestational [pregnancy-induced] hypertension without significant proteinuria, complicating childbirth (principal); O24.425 Gestational diabetes mellitus in childbirth, controlled by oral hypoglycemic drugs; J45.909 Unspecified asthma, uncomplicated; Z37.0 Single live birth; Z3A.38 38 weeks gestation of pregnancy; Z28.310 Unvaccinated for COVID-19; O99.52 Diseases of the respiratory system complicating childbirth; Z79.84 Long term (current) use of oral hypoglycemic drugs; Z79.899 Other long term (current) drug therapy; Z86.59 Personal history of other mental and behavioral disorders
CPT/HCPCS: 80306; 83036; 85025; 86850; 86900; 86901

== ENCOUNTER → 2023-07-01 | Outpatient (CLI) | payer OTHER | END | disposition home or self-care (01) | LOC: RADUSWWP 14:16 | PROVIDERS: ATTEND Obstetrics & Gynecology | DX: Z53.9 Procedure and treatment not carried out, unspecified reason (principal) ==

== ENCOUNTER → 2023-10-20 | Outpatient (CLI) | payer OTHER ==
--- NOTE | 2023-10-21 07:58 | US ---
EXAMINATION TYPE: US pelvic complete DATE OF EXAM: 10/20/2023 COMPARISON: CLINICAL INDICATION: Female, 23 years old with history of R10.2 PELVIC PAIN; IUD check, patient state s she may have accidentally tugged on the strings. Hx left echogenic 2020. TECHNIQUE: Transabdominal (TA). Transabdominal sonographic images of the pelvis were acquired. Date of LMP: 10/17/2022, EXAM MEASUREMENTS: Uterus: 8.3 x 5.1 x 3.3 cm Endometrial Stripe: 0.4 cm Right Ovary: 3.1 x 1.9 x 2.0 cm Left Ovary: 3.0 x 1.6 x 1.5 cm 1. Uterus: Anteverted Heterogenous 2. Endometrium: IUD visualized within endometrial canal 3. Right Ovary: Pedunculated cystic appearing lesion =2.1 cm 4. Left Ovary: follicles seen 5. Bilateral Adnexa: wnl 6. Posterior cul-de-sac: no free fluid IMPRESSION: 1. IUD is noted. 2. Right ovarian pedunculated cyst suggested.
== END | disposition home or self-care (01) ==
LOC: RADUSWWP 16:10
PROVIDERS: ATTEND Obstetrics & Gynecology
DX: Z30.431 Encounter for routine checking of intrauterine contraceptive device (principal)
CPT/HCPCS: 76856